=== PATIENT | female | born 1950 | race Caucasian/White ===

== ENCOUNTER → 2018-07-25 | Outpatient (CLI) | payer MEDICARE, BC ==
--- NOTE | 2018-07-28 12:40 | EST ---
EXERCISE STRESS DATE OF SERVICE: 07/25/2018 AGE: 67 SEX: F HT: 5'4" WT: 240 PROTOCOL: Sly STAGE: I DURATION OF EXERCISE: 3:20 HEART RATE REST: 70 BLOOD PRESSURE REST: 142/75 MAXIMUM HEART RATE ACHIEVED: 139 MAXIMUM BLOOD PRESSURE: 209/59 85% MPHR: 130 100% MPHR: 153 METS: 4.6 INDICATIONS: Chest pain. CLINICAL INFORMATION: The patient was exercised for a total period of 3 minutes and 20 seconds. The peak heart rate of 139 was achieved. Maximum blood pressure of 189/49 mmHg is noted. The resting EKG shows normal sinus rhythm with normal NM interval and QRS duration with poor R-wave progression from V1 to V6. No ST-segment depression suggestive of ischemia is noted. FINAL IMPRESSION: This exercise stress test is not suggestive of ischemia. Patient's exercise tolerance is below average. The test was terminated because of the symptoms of shortness of breath. MMODL / IJN: [id number] /
== END | disposition home or self-care (01) ==
LOC: RADNMMAIN 08:46
PROVIDERS: ATTEND Family Medicine
DX: R07.89 Other chest pain (principal)
CPT/HCPCS: 93017

== ENCOUNTER → 2019-07-27 | Outpatient (CLI) | payer MEDICARE, BC ==
--- NOTE | 2019-08-04 11:35 | MM ---
Reason for exam: screening (asymptomatic). Last mammogram was performed 1 year and 6 months ago. History: Patient is postmenopausal. Took hormonal contraceptives for 3 years. Taking estrogen for 20 years. Physical Findings: A clinical breast exam by your physician is recommended on an annual basis and results should be correlated with mammographic findings. MG 3D Screening Mammo W/Cad Bilateral CC and MLO view(s) were taken. Prior study comparison: February 04, 2018, mammogram, performed at [facility]. September 28, 2016, mammogram, performed at [facility]. There are scattered fibroglandular densities. There is no discrete abnormality. No significant changes when compared with prior studies. ASSESSMENT: Negative, BI-RAD 1 RECOMMENDATION: Routine screening mammogram of both breasts in 1 year.
== END | disposition home or self-care (01) ==
LOC: RADMAMWWP 13:59
PROVIDERS: ATTEND Family Medicine
DX: Z12.31 Encounter for screening mammogram for malignant neoplasm of breast (principal)
CPT/HCPCS: 77063; 77067

== ENCOUNTER 2019-07-30 06:58 | Day surgery (SDC) | payer MEDICARE, BC ==
[~2019-07-30 06:58] MED LIST: LACTATED RINGERS 1,000 ML IV SCH; LIDOCAINE 1% 20 ML VIAL (10MG/ML) FOR IV START INTRADERMA PRN
[2019-07-30 07:22] VITALS: TEMP 97.4
[2019-07-30 07:31] LABS: Glucose,Whole Blood 110 mg/dL (75-99)
[2019-07-30] MEDS ORDERED: PROPOFOL 10 MG/ML 20 ML VIAL IV ONE (07:37)
[2019-07-30 08:15] VITALS: RESP 16
--- NOTE | 2019-07-30 08:15 | P.PCN ---
Date of Procedure: 07/30/19 Description of Procedure: BRIEF HISTORY: Patient is a 68-year-old pleasant female scheduled for an elective colonoscopy as a part of screening for malignant neoplasm in the colon. No change in bowel habits, blood per rectum or abdominal pain. No family history of colon cancer. She reports 2 colonoscopies in the past with polypectomy at that time. PROCEDURE PERFORMED: Colonoscopy with polypectomy. PREOPERATIVE DIAGNOSIS: Screening for malignant neoplasm of the colon, patient reports polypectomy on prior colonoscopies. ESTIMATED BLOOD LOSS: Minimal. IV sedation per Anesthesia. PROCEDURE: After informed consent was obtained, the patient, was brought into the endoscopy unit. IV sedation was administered by Anesthesia under continuous monitoring. Digital rectal examination was normal. Initially the Olympus CF-190 flexible video colonoscope was then inserted in the rectum, gradually advanced into the cecum without any difficulty. Careful examination was performed as the scope was gradually being withdrawn. Ileocecal valve and the appendiceal orifice were visualized and appeared normal. Prep was excellent. Mucosa of the cecum, ascending colon, transverse colon, descending colon, sigmoid colon, and rectum appeared normal. Multiple small and large mouth diverticula in the left colon. Diminutive 2 mm transverse colon polyp removed with cold forcep polypectomy. Diminutive 2 mm sigmoid colon polyp removed with cold forcep polypectomy. Retroflexion was performed in the rectum and no lesions were seen. The patient tolerated the procedure well. IMPRESSION: Diminutive polyps removed from the sigmoid and transverse colon with cold forceps. Moderate left colonic diverticulosis. RECOMMENDATIONS: Findings of this examination were discussed with the patient and her . Okay to resume diet. Okay to resume medications. Recommend repeat colonoscopy in 5 years for personal history of colon polyps. Await pathology from polypectomies.
[2019-07-30 08:30] VITALS: BP 124/71; PULSE 78
== END 2019-07-30 09:08 | disposition home or self-care (01) ==
LOC: ORWHC2ENDO 06:58
PROVIDERS: ATTEND Internal Medicine
DX: Z12.11 Encounter for screening for malignant neoplasm of colon (principal); D12.3 Benign neoplasm of transverse colon; K63.5 Polyp of colon; K57.30 Diverticulosis of large intestine without perforation or abscess without bleeding; Z86.010 Personal history of colon polyps; I10 Essential (primary) hypertension; E78.5 Hyperlipidemia, unspecified; R06.00 Dyspnea, unspecified; R60.0 Localized edema; J45.909 Unspecified asthma, uncomplicated; H40.9 Unspecified glaucoma; Z87.891 Personal history of nicotine dependence; Z98.42 Cataract extraction status, left eye; Z98.41 Cataract extraction status, right eye; Z90.710 Acquired absence of both cervix and uterus; Z90.49 Acquired absence of other specified parts of digestive tract; Z79.84 Long term (current) use of oral hypoglycemic drugs; Z79.82 Long term (current) use of aspirin; Z79.890 Hormone replacement therapy; Z79.51 Long term (current) use of inhaled steroids; Z79.899 Other long term (current) drug therapy; Z88.8 Allergy status to other drugs, medicaments and biological substances; Z88.1 Allergy status to other antibiotic agents
CPT/HCPCS: 88305; 45380; J2704

== ENCOUNTER → 2021-08-15 | Outpatient (CLI) | payer MEDICARE, BC ==
--- NOTE | 2021-08-16 10:13 | MM ---
Reason for exam: screening (asymptomatic). Last mammogram was performed 2 years and 1 month ago. History: Patient is postmenopausal. Excisional biopsy of the left breast, 2001. Took hormonal contraceptives for 3 years. Taking estrogen for 20 years. Physical Findings: A clinical breast exam by your physician is recommended on an annual basis and results should be correlated with mammographic findings. MG Screening Mammo w CAD Bilateral CC and MLO view(s) were taken. Prior study comparison: July 27, 2019, bilateral MG 3d screening mammo w/cad. February 04, 2018, mammogram, performed at [facility]. The breast tissue is heterogeneously dense. This may lower the sensitivity of mammography. Stable benign calcifications. There is no discrete abnormality. No significant changes when compared with prior studies. ASSESSMENT: Benign, BI-RAD 2 RECOMMENDATION: Routine screening mammogram of both breasts in 1 year.
== END | disposition home or self-care (01) ==
LOC: RADMAMWWP 13:52
PROVIDERS: ATTEND Family Medicine
DX: Z12.31 Encounter for screening mammogram for malignant neoplasm of breast (principal); Z78.0 Asymptomatic menopausal state
CPT/HCPCS: 77067

== ENCOUNTER → 2022-04-12 | Outpatient (CLI) | payer MEDICARE, BC | END | disposition home or self-care (01) | LOC: LABPAT 14:59 | PROVIDERS: ATTEND Surgery | DX: Z01.812 Encounter for preprocedural laboratory examination (principal) | CPT/HCPCS: 84132; 93005 ==

== ENCOUNTER 2022-04-16 09:13 | Day surgery (SDC) | payer MEDICARE, BC ==
[2022-04-12 10:28] VITALS: BMI 38.7
[~2022-04-16 09:13] MED LIST changes: +DEXAMETHASONE SOD PHOSPHATE 4 MG/ML 1 ML VIAL IV ONE; +HYDROmorphone 0.5 MG/0.5 ML SYRINGE IVP PRN; -LIDOCAINE 1% 20 ML VIAL (10MG/ML) FOR IV START INTRADERMA PRN; +MIDAZOLAM 2 MG/2 ML VIAL IV PRN; +ONDANSETRON 4 MG/2 ML VIAL IVP ONE
[2022-04-16 09:45] LABS: Glucose,Whole Blood 117 mg/dL (70-110)
[2022-04-16 10:12] LABS: Basophils # (A) 0.1 k/uL (0-0.2); Basophils % (A) 1 %; Eosinophils # (A) 0.3 k/uL (0-0.7); Eosinophils % (A) 4 %; HCT 41.2 % (34.0-46.0); HGB 13.9 gm/dL (11.4-16.0); Lymphocytes # (A) 2.1 k/uL (1.0-4.8); Lymphocytes % (A) 28 %; MCH 32.7 pg (25.0-35.0); MCHC 33.8 g/dL (31.0-37.0); MCV 96.9 fL (80.0-100.0); Mean Platelet Volume 7.8; Monocytes # (A) 0.4 k/uL (0-1.0); Monocytes % (A) 5 %; Neutrophils # (A) 4.5 k/uL (1.3-7.7); Neutrophils % (A) 61 %; Platelet Count 301 k/uL (150-450); RBC 4.26 m/uL (3.80-5.40); RDW 12.2 % (11.5-15.5); WBC 7.5 k/uL (3.8-10.6)
[2022-04-16 10:24] LABS: Potassium 3.9 mmol/L (3.5-5.1)
[2022-04-16] MEDS ORDERED: HEPARIN SODIUM,PORCINE/PF 5,000 UNIT/0.5 ML SYRINGE SQ ONE (10:57)
[2022-04-16] MEDS ORDERED: PROPOFOL 10 MG/ML 20 ML VIAL IV ONE (11:08)
[2022-04-16] MEDS ORDERED: ROCURONIUM 10 MG/ML (5 ML VIAL) IV ONE (11:08)
[2022-04-16] MEDS ORDERED: SUCCINYLCHOLINE CHLORIDE 200 MG/10 ML VIAL IV ONE (11:08)
[2022-04-16] MEDS ORDERED: ePHEDrine 50 MG/ML 1 ML VIAL ONE (11:08)
[2022-04-16] MEDS ORDERED: fentaNYL (PF) 50 MCG/ML 2 ML AMP ONE (11:08)
[2022-04-16] MEDS ORDERED: MIDAZOLAM 2 MG/2 ML VIAL ONE (11:08)
[2022-04-16] MEDS ORDERED: LIDOCAINE 2% INJ 20 MG/ML (2 ML VIAL) ONE (11:08)
[2022-04-16] MEDS ORDERED: GLYCOPYRROLATE 0.2 MG/ML 2 ML VIAL ONE (11:08)
[2022-04-16] MEDS ORDERED: NEOSTIGMINE 1 MG/ML 10 ML VIAL ONE (11:08)
--- NOTE | 2022-04-16 11:09 | P.GSHP ---
History of Present Illness H&P Date: 04/16/22 Chief Complaint: Incisional hernia 71-year-old female here today for elective repair of incisional hernia. Patient had previous laparoscopic cholecystectomy with extraction site at the umbilicus. Patient has had gradual swelling they're since that time. Mild pain at times. No nausea or vomiting. Past Medical History Past Medical History: Asthma, Diabetes Mellitus, Hyperlipidemia, Hypertension, Osteoarthritis (OA), Pneumonia Additional Past Medical History / Comment(s): HX COLON POLYPS, HERNIA. History of Any Multi-Drug Resistant Organisms: None Reported Past Surgical History: Breast Surgery, Cholecystectomy, Hysterectomy Additional Past Surgical History / Comment(s): COLONOSCOPIES X 2 POLYPS. , CATARACTS WITH LENS IMPLANTS. LEFT BREAST BX Past Anesthesia/Blood Transfusion Reactions: No Reported Reaction Past Psychological History: No Psychological Hx Reported Smoking Status: Former smoker Past Alcohol Use History: None Reported Additional Past Alcohol Use History / Comment(s): QUIT SMOKING 1999. SMOKED LESS THAN 1 PPD. , STARTED SMOKING TEEN Past Drug Use History: None Reported - Past Family History Father Family Medical History: Cancer Medications and Allergies Home Medications Medication Instructions Recorded Confirmed Type Atorvastatin [Lipitor] 20 mg PO HS 07/27/19 04/16/22 History Bimatoprost [Bimatoprost 0.03% 1 drop BOTH EYES HS 07/27/19 04/16/22 History Ophth Soln] Cholecalciferol (Vitamin D3) 2,000 unit PO DAILY 07/27/19 04/16/22 History [Vitamin D3] Cyanocobalamin (Vitamin B-12) 5,000 mcg PO DAILY 07/27/19 04/16/22 History [Vitamin B-12] Furosemide [Lasix] 20 mg PO QAM 07/27/19 04/16/22 History Mometasone/Formoterol [Dulera 200 2 puff INHALATION BID 07/27/19 04/16/22 History Mcg/5 Mcg Inhaler] estradioL [Estradiol] 0.5 mg PO MOWEFR 07/27/19 04/16/22 History guaiFENesin [Mucinex] 400 mg PO DAILY 07/27/19 04/16/22 History lisinopriL 20 mg PO QAM 07/27/19 04/16/22 History metFORMIN HCL [Glucophage] 500 mg PO BID 07/27/19 04/16/22 History Multivit with Calcium,Iron,Min 1 each PO DAILY 04/12/22 04/16/22 History [Women's Multivitamin] Allergies Allergy/AdvReac Type Severity Reaction Status Date / Time clarithromycin [From Biaxin] Allergy Itching Verified 04/16/22 09:26 theophylline Allergy Itching Verified 04/16/22 09:26 Surgical - Exam Vital Signs Temp Pulse Resp BP Pulse Ox 96.9 F L 67 20 155/69 97 04/16/22 09:39 04/16/22 09:39 04/16/22 09:39 04/16/22 09:39 04/16/22 09:39 Physical exam: General: Well-developed, well-nourished HEENT: Normocephalic, sclerae nonicteric Abdomen: Nontender, nondistended, incarcerated hernia at umbilicus Extremities: No edema Neuro: Alert and oriented Results - Labs 04/16/22 09:47 04/16/22 09:47 Abnormal Lab Results - Last 24 Hours (Table) 04/16/22 Range/Units 09:44 POC Glucose (mg/dL) 117 H (70-110) mg/dL Diabetes panel 04/16/22 Range/Units 09:47 Sodium 140 (137-145) mmol/L Potassium 3.9 (3.5-5.1) mmol/L Chloride 103 (98-107) mmol/L Carbon Dioxide 26 (22-30) mmol/L Pituitary panel 04/16/22 Range/Units 09:47 Sodium 140 (137-145) mmol/L Potassium 3.9 (3.5-5.1) mmol/L Chloride 103 (98-107) mmol/L Carbon Dioxide 26 (22-30) mmol/L Adrenal panel 04/16/22 Range/Units 09:47 Sodium 140 (137-145) mmol/L Potassium 3.9 (3.5-5.1) mmol/L Chloride 103 (98-107) mmol/L Carbon Dioxide 26 (22-30) mmol/L Assessment and Plan (1) Incarcerated incisional hernia Narrative/Plan: 71-year-old female with incarcerated incisional hernia. We'll proceed with open repair with mesh at this time. Risks of bleeding, infection, recurrence, bladder and bowel injury, numbness, nerve injury were discussed with the patient. The patient understands and wishes to proceed. Current Visit: Yes Status: Acute Code(s): K43.0 - INCISIONAL HERNIA WITH OBSTRUCTION, WITHOUT GANGRENE SNOMED Code(s): 266354079
[2022-04-16] MEDS ORDERED: BUPIVACAIN-EPI 0.25%-1:200,000 30 ML VIAL SQ ONE (11:13)
[2022-04-16 12:28] VITALS: TEMP 97.8
[2022-04-16] MEDS ORDERED: traMADol 50 MG TAB PO STA (12:29)
[2022-04-16] MEDS ORDERED: ACETAMINOPHEN TAB 325 MG TAB PO SCH (12:30)
--- NOTE | 2022-04-16 12:33 | P.OP ---
Date of Procedure: 04/16/22 Procedure(s) Performed: PREOPERATIVE DIAGNOSIS: Incarcerated incisional hernia POSTOPERATIVE DIAGNOSIS: Same PROCEDURE: Repair incarcerated incisional hernia with mesh SURGEON: Dr. Jones ANESTHESIA: General OPERATIVE PROCEDURE DETAILS: The patient was placed in the operating table in the supine position. A left sided periumbilical incision was made using the scalpel. The subcutaneous tissues were dissected bluntly and with cautery. The hernia sac was identified. The umbilical attachments to the fascia were divided using electrocautery. The hernia sac was reduced back into the preperitoneal space. There was some scarring and we ran into that reflected the previous extraction site scar tissue. The defect in the fascia measured 2.2 x 1.2 cm. excised. The fascia was circumferentially dissected of overlying fat. No additional defects were seen. The preperitoneal space was then dissected using blunt dissection and electrocautery. The 6.4 cm ventral ex mesh was placed beneath the fascia and sutured in place using trans-fascial 0 Ethibond sutures. The defect was closed using interrupted horizontal 0 Ethibond mattress sutures. The folding edge was sutured down using 0 Ethibond sutures as well. The subcutaneous tissues were reapproximated using inverted 2-0 & 3-0 Vicryl sutures. The umbilicus was tacked back down to the fascia using a 2-0 Vicryl suture. The skin was closed using 4-0 Monocryl sutures. Skin glue and sterile dressings were then applied. HERNIA CHARACTERISTICS: Length: 2.2 Width: 1.2 Type: Incarcerated incisional TYPE OF MESH USED: 6.4 cm round ventral ex LOCATION OF MESH: [place]ublay FIXATION: 0 Ethibond sutures PREOPERATIVE DISCUSSION ON SMOKING CESSASTION: Yes PREOPERATIVE DISCUSSION ON MORBID OBESITY: Yes PREOPERATIVE DISCUSSION ON APPROPRIATE USE OF NARCOTIC USE: Yes PREOPERATIVE EDUCATION: Multi Modal, Smoking Cessation and Weight Loss with BMI over 35. DISPOSITION: Stable to recovery room
[2022-04-16] MEDS ORDERED: traMADol 50 MG TAB PO ONE (13:10)
[2022-04-16 13:11] VITALS: RESP 20
[2022-04-16 13:14] VITALS: BP 143/83; PULSE 52
[2022-04-16] MEDS ORDERED: IBUPROFEN 600 MG TAB PO SCH (15:30)
== END 2022-04-16 14:03 ==
LOC: OR 09:13
PROVIDERS: ATTEND Surgery
DX: K43.0 Incisional hernia with obstruction, without gangrene (principal); M19.90 Unspecified osteoarthritis, unspecified site; E78.5 Hyperlipidemia, unspecified; I10 Essential (primary) hypertension; E11.9 Type 2 diabetes mellitus without complications; J45.909 Unspecified asthma, uncomplicated; J18.9 Pneumonia, unspecified organism; Z87.891 Personal history of nicotine dependence; Z79.890 Hormone replacement therapy; Z79.899 Other long term (current) drug therapy; Z79.84 Long term (current) use of oral hypoglycemic drugs; Z88.1 Allergy status to other antibiotic agents; Z88.8 Allergy status to other drugs, medicaments and biological substances; Z86.010 Personal history of colon polyps; Z79.51 Long term (current) use of inhaled steroids
CPT/HCPCS: 49561; 49568; 80051; 85025; C1781; J2250; J0330; J1100; J2710; J0690; J2405; J3010; J2704; J2001

== ENCOUNTER → 2022-10-17 | Outpatient (CLI) | payer MEDICARE ==
--- NOTE | 2022-10-18 10:17 | MM ---
Reason for Exam: Screening (asymptomatic). Last mammogram was performed 1 year(s) and 2 month(s) ago. Patient History: Menarche at age 13. First Full-Term at age 26. Left ovary removed at age 48. Hysterectomy at age 48. Postmenopausal. Currently using Estrogen, for 20 years. Patient used Hormonal Contraceptives for 3 years. 2001, Excisional Biopsy on the Left side. Risk Values: Latricia 5 year model risk: 2.3%. Prior Study Comparison: 02/04/2018 Screening Mammogram, [facility]. 07/27/2019 Bilateral Screening Mammogram, [facility]. 08/15/2021 Bilateral Screening Mammogram, [facility]. Tissue Density: There are scattered fibroglandular densities. Findings: Analyzed By CAD. Pattern appears symmetrical and stable. Benign calcifications within the left breast. No suspicious groups of microcalcifications, spiculated or lobular masses, architectural distortion or other secondary signs of malignancy are mammographically apparent. Overall Assessment: Benign, BI-RAD 2 Management: Screening Mammogram of both breasts in 1 year. A negative mammogram report should not preclude additional follow up of suspicious palpable abnormalities. Patient should continue monthly self breast exam. A clinical breast exam by your physician is recommended on an annual basis and results should be correlated with mammographic findings. Electronically signed and approved by: Rob Roche D.O. Radiologis
== END | disposition home or self-care (01) ==
LOC: RADMAMWWP 13:31
PROVIDERS: ATTEND Family Medicine
DX: Z12.31 Encounter for screening mammogram for malignant neoplasm of breast (principal); Z78.0 Asymptomatic menopausal state
CPT/HCPCS: 77063; 77067

== ENCOUNTER 2023-09-13 10:55 | Observation (INO) | payer MEDICARE ==
--- NOTE | 2023-09-13 11:45 | ED ---
General Adult HPI - General Chief complaint: Chest Pain Stated complaint: CHEST PAINS Time Seen by Provider: 09/13/23 11:21 Source: patient, RN notes reviewed, old records reviewed Mode of arrival: ambulatory Limitations: no limitations - History of Present Illness Initial comments: 72-year-old female presenting with intermittent chest pain over the past several weeks. Patient does not have prior history of CAD. She reports this as an aching sensation in her left chest. No associated vomiting or diaphoresis. No lower extremity pain or swelling. - Related Data Home Medications Medication Instructions Recorded Confirmed Atorvastatin [Lipitor] 20 mg PO HS 07/27/19 09/13/23 Cyanocobalamin (Vitamin B-12) 5,000 mcg PO DAILY 07/27/19 09/13/23 [Vitamin B-12] Furosemide [Lasix] 20 mg PO DAILY 07/27/19 09/13/23 Mometasone/Formoterol [Dulera 200 2 puff INHALATION RT-BID 07/27/19 09/13/23 Mcg/5 Mcg Inhaler] estradioL [Estradiol] 0.5 mg PO MOWEFR 07/27/19 09/13/23 lisinopriL 20 mg PO DAILY 07/27/19 09/13/23 metFORMIN HCL [Glucophage] 500 mg PO BID 07/27/19 09/13/23 Albuterol Inhaler [Ventolin Hfa 1 - 2 puff INHALATION RT-Q6H PRN 09/13/23 09/13/23 Inhaler] Aspirin EC [Ecotrin Low Dose] 81 mg PO DAILY 09/13/23 09/13/23 Bimatoprost [Lumigan 0.01% Ophth 1 drop BOTH EYES HS 09/13/23 09/13/23 Soln] Cholecalciferol (Vitamin D3) 50 mcg PO DAILY 09/13/23 09/13/23 [Vitamin D3 (50 Mcg = 2000 Iu)] Tirzepatide [Mounjaro] 5 mg SQ DIRECTED 09/13/23 09/13/23 guaiFENesin 400 mg PO DAILY 09/13/23 09/13/23 Allergies Allergy/AdvReac Type Severity Reaction Status Date / Time clarithromycin [From Biaxin] Allergy Itching Verified 09/13/23 11:54 theophylline Allergy Itching Verified 09/13/23 11:54 Review of Systems ROS Statement: Those systems with pertinent positive or pertinent negative responses have been documented in the HPI. ROS Other: All systems not noted in ROS Statement are negative. Past Medical History Past Medical History: Asthma, Diabetes Mellitus, Hyperlipidemia, Hypertension, Osteoarthritis (OA), Pneumonia Additional Past Medical History / Comment(s): HX COLON POLYPS, HERNIA. History of Any Multi-Drug Resistant Organisms: None Reported Past Surgical History: Breast Surgery, Cholecystectomy, Hysterectomy Additional Past Surgical History / Comment(s): COLONOSCOPIES X 2 POLYPS. , CATARACTS WITH LENS IMPLANTS. LEFT BREAST BX Past Anesthesia/Blood Transfusion Reactions: No Reported Reaction Past Psychological History: No Psychological Hx Reported Smoking Status: Former smoker Past Alcohol Use History: None Reported Past Drug Use History: None Reported - Past Family History Father Family Medical History: Cancer General Exam Limitations: no limitations General appearance: alert, in no apparent distress Head exam: Present: atraumatic, normocephalic Eye exam: Present: normal appearance, PERRL ENT exam: Present: normal exam Neck exam: Present: normal inspection. Absent: tenderness, meningismus Respiratory exam: Present: normal lung sounds bilaterally. Absent: respiratory distress, wheezes Cardiovascular Exam: Present: regular rate, normal rhythm GI/Abdominal exam: Present: soft. Absent: distended, tenderness, guarding Extremities exam: Present: normal inspection, normal capillary refill. Absent: calf tenderness Neurological exam: Present: alert, oriented X3 Psychiatric exam: Present: normal affect, normal mood Skin exam: Present: warm, dry, intact. Absent: cyanosis, diaphoretic Course Vital Signs 09/13/23 09/13/23 11:04 11:37 Temperature 97.9 F Pulse Rate 90 77 Respiratory 18 16 Rate Blood Pressure 122/88 157/100 O2 Sat by Pulse 98 96 Oximetry Medical Decision Making - Medical Decision Making Was pt. sent in by a medical professional or institution (, PA, LACE BURN OUT TENDER, urgent care, hospital, or half-way...) When possible be specific @ -No Did you speak to anyone other than the patient for history (EMS, parent, family, police, friend...)? What history was obtained from this source @ -No Did you review nursing and triage notes (agree or disagree)? Why? @ -I reviewed and agree with nursing and triage notes Were old charts reviewed (outside hosp., previous admission, EMS record, old EKG, old radiological studies, urgent care reports/EKG's, half-way records)? Report findings @ -No old charts were reviewed Differential Diagnosis (chest pain, altered mental status, abdominal pain women, abdominal pain men, vaginal bleeding, weakness, fever, dyspnea, syncope, headache, dizziness, GI bleed, back pain, seizure, CVA, palpatations, mental health, musculoskeletal)? @ -Differential Chest Pain: Stable Angina, Unstable Angina, STEMI, NSTEMI Aortic Dissection, Pneumothorax, Musculoskeletal, Esophageal Spasm GERD, Cholecystitis, Pancreatitis, Zoster, this is not meant to be an all-inclusive list. EKG interpreted by me (3pts min.). @ -Sinus rhythm rate of 70, RI interval 182, QRS duration 125, QTc [address] segment elevation. X-rays interpreted by me (1pt min.). @ Chest x-ray negative for acute cardiopulmonary findings U/S interpreted by me (1pt. min.). @ -None done What testing was considered but not performed or refused? (CT, X-rays, U/S, labs)? Why? @ -None What meds were considered but not given or refused? Why? @ -None Did you discuss the management of the patient with other professionals (professionals i.e. , PA, LACE BURN OUT TENDER, lab, RT, psych nurse, socially responsible investment adviser, senior lead java developer, teacher, mounted police officer, bilingual case manager)? Give summary @ -[EMH, will accept admission for cardiac rule out Was smoking cessation discussed for >3mins.? @ -No Was critical care preformed (if so, how long)? @ -No Were there social determinants of health that impacted care today? How? (Homelessness, low income, unemployed, alcoholism, drug addiction, transportation, low edu. Level, literacy, decrease access to med. care, nursing home, rehab)? @ -No Was there de-escalation of care discussed even if they declined (Discuss DNR or withdrawal of care, Hospice)? DNR status @ -No What co-morbidities impacted this encounter? (DM, HTN, Smoking, COPD, CAD, Cancer, CVA, ARF, Chemo, Hep., AIDS, mental health diagnosis, sleep apnea, morbid obesity)? @ -[Hypertension, diabetes Was patient admitted / discharged? Hospital course, mention meds given and route, prescriptions, significant lab abnormalities, going to OR and other pertinent info. @ -72-year-old female presenting for evaluation of intermittent chest pain over the past 2 weeks. Patient's EKG is sinus without ST segment elevation. Chest x-ray is clear. She has normal CBC, normal CMP, negative initial troponin. She will be observed for serial cardiac testing, telemetry, cardiology consultation. Undiagnosed new problem with uncertain prognosis? @ -No Drug Therapy requiring intensive monitoring for toxicity (Heparin, Nitro, Insulin, Cardizem)? @ -No Were any procedures done? @ -No Diagnosis/symptom? @ -[Chest pain Acute, or Chronic, or Acute on Chronic? @ -Acute Uncomplicated (without systemic symptoms) or Complicated (systemic symptoms)? @ -[default Side effects of treatment? @ -No Exacerbation, Progression, or Severe Exacerbation? @ -No Poses a threat to life or bodily function? How? (Chest pain, [place], [place], pneumonia, PE, COPD, DKA, ARF, appy, cholecystitis, CVA, Diverticulitis, Homicidal, Suicidal, threat to staff... and all critical care pts) @ -[Yes, chest pain - Lab Data Result diagrams: 09/13/23 11:40 09/13/23 11:40 Lab Results 09/13/23 09/13/23 09/13/23 Range/Units 11:40 11:40 11:40 WBC 9.0 (3.8-10.6) k/uL RBC 4.70 (3.80-5.40) m/uL Hgb 15.3 (11.4-16.0) gm/dL Hct 44.5 (34.0-46.0) % MCV 94.6 (80.0-100.0) fL MCH 32.7 (25.0-35.0) pg MCHC 34.5 (31.0-37.0) g/dL RDW 12.7 (11.5-15.5) % Plt Count 339 (150-450) k/uL MPV 8.2 Neutrophils % 65 % Lymphocytes % 24 % Monocytes % 6 % Eosinophils % 2 % Basophils % 1 % Neutrophils # 5.9 (1.3-7.7) k/uL Lymphocytes # 2.2 (1.0-4.8) k/uL Monocytes # 0.5 (0-1.0) k/uL Eosinophils # 0.2 (0-0.7) k/uL Basophils # 0.1 (0-0.2) k/uL PT 10.4 (10.0-12.5) sec INR 0.9 (<1.2) APTT 24.2 (22.0-30.0) sec Sodium 139 (137-145) mmol/L Potassium 4.0 (3.5-5.1) mmol/L Chloride 105 (98-107) mmol/L Carbon Dioxide 21 L (22-30) mmol/L Anion Gap 13 mmol/L BUN 20 H (7-17) mg/dL Creatinine 0.77 (0.52-1.04) mg/dL Est GFR (CKD-EPI)AfAm 89 (>60 ml/min/1.73 sqM) Est GFR (CKD-EPI)NonAf 77 (>60 ml/min/1.73 sqM) Glucose 133 H (74-99) mg/dL Calcium 10.3 H (8.4-10.2) mg/dL Magnesium 1.9 (1.6-2.3) mg/dL Total Bilirubin 1.4 H (0.2-1.3) mg/dL AST 29 (14-36) U/L ALT 41 H (4-34) U/L Alkaline Phosphatase 76 (38-126) U/L Troponin I (0.000-0.034) ng/mL Total Protein 7.4 (6.3-8.2) g/dL Albumin 4.6 (3.5-5.0) g/dL 09/13/23 Range/Units 11:40 WBC (3.8-10.6) k/uL RBC (3.80-5.40) m/uL Hgb (11.4-16.0) gm/dL Hct (34.0-46.0) % MCV (80.0-100.0) fL MCH (25.0-35.0) pg MCHC (31.0-37.0) g/dL RDW (11.5-15.5) % Plt Count (150-450) k/uL MPV Neutrophils % % Lymphocytes % % Monocytes % % Eosinophils % % Basophils % % Neutrophils # (1.3-7.7) k/uL Lymphocytes # (1.0-4.8) k/uL Monocytes # (0-1.0) k/uL Eosinophils # (0-0.7) k/uL Basophils # (0-0.2) k/uL PT (10.0-12.5) sec INR (<1.2) APTT (22.0-30.0) sec Sodium (137-145) mmol/L Potassium (3.5-5.1) mmol/L Chloride (98-107) mmol/L Carbon Dioxide (22-30) mmol/L Anion Gap mmol/L BUN (7-17) mg/dL Creatinine (0.52-1.04) mg/dL Est GFR (CKD-EPI)AfAm (>60 ml/min/1.73 sqM) Est GFR (CKD-EPI)NonAf (>60 ml/min/1.73 sqM) Glucose (74-99) mg/dL Calcium (8.4-10.2) mg/dL Magnesium (1.6-2.3) mg/dL Total Bilirubin (0.2-1.3) mg/dL AST (14-36) U/L ALT (4-34) U/L Alkaline Phosphatase (38-126) U/L Troponin I <0.012 (0.000-0.034) ng/mL Total Protein (6.3-8.2) g/dL Albumin (3.5-5.0) g/dL Disposition Clinical Impression: Chest pain Disposition: ADMITTED IP TO THIS HOSP Condition: Stable Is patient prescribed a controlled substance at d/c from ED?: No Referrals: Mirlande Eduardo [Primary Care Provider] - 1-2 days Time of Disposition: 12:41
[2023-09-13 12:03] LABS: Basophils # (A) 0.1 k/uL (0-0.2); Basophils % (A) 1 %; Eosinophils # (A) 0.2 k/uL (0-0.7); Eosinophils % (A) 2 %; HCT 44.5 % (34.0-46.0); HGB 15.3 gm/dL (11.4-16.0); Lymphocytes # (A) 2.2 k/uL (1.0-4.8); Lymphocytes % (A) 24 %; MCH 32.7 pg (25.0-35.0); MCHC 34.5 g/dL (31.0-37.0); MCV 94.6 fL (80.0-100.0); Mean Platelet Volume 8.2; Monocytes # (A) 0.5 k/uL (0-1.0); Monocytes % (A) 6 %; Neutrophils # (A) 5.9 k/uL (1.3-7.7); Neutrophils % (A) 65 %; Platelet Count 339 k/uL (150-450); RDW 12.7 % (11.5-15.5)
[2023-09-13 12:17] LABS: ALT 41 U/L (4-34); AST 29 U/L (14-36); African American GFR (CKD) 89 (>60 ml/min/1.73 sqM); Albumin 4.6 g/dL (3.5-5.0); Alkaline Phosphatase 76 U/L (38-126); Anion Gap 13 mmol/L; Blood Urea Nitrogen 20 mg/dL (7-17); Calcium 10.3 mg/dL (8.4-10.2); Carbon Dioxide 21 mmol/L (22-30); Chloride 105 mmol/L (98-107); Glucose 133 mg/dL (74-99); Magnesium 1.9 mg/dL (1.6-2.3); Non-African American GFR(CKD) 77 (>60 ml/min/1.73 sqM); Sodium 139 mmol/L (137-145); Total Bilirubin 1.4 mg/dL (0.2-1.3); Total Protein 7.4 g/dL (6.3-8.2)
--- NOTE | 2023-09-13 12:23 | XR ---
EXAMINATION TYPE: XR chest 2V DATE OF EXAM: 09/13/2023 COMPARISON: NONE TECHNIQUE: PA and lateral views submitted. HISTORY: Chest pain FINDINGS: The lungs are clear and there is no pneumothorax, pleural effusion, or focal pneumonia. Heart is pro minent in size but no overt failure. Osseous structures demonstrate hypertrophic and degenerative lila nges of the spine. Pleural-based thickening bilaterally. Surgical clips gallbladder fossa. IMPRESSION: 1. No acute process.
[2023-09-13 12:28] LABS: INR 0.9 (<1.2); Partial Thromboplastin Time 24.2 sec (22.0-30.0); Prothrombin Time 10.4 sec (10.0-12.5)
[2023-09-13] MEDS ORDERED: ACETAMINOPHEN TAB 325 MG TAB PO PRN (12:38)
[2023-09-13] MEDS ORDERED: NALOXONE 0.4 MG/ML 1 ML VIAL IV PRN (12:38)
[2023-09-13] MEDS: ASPIRIN 325 MG TAB PO STA (12:58)
[2023-09-13] MEDS ORDERED: DEXTROSE 50% SYRINGE 50 ML IVP PRN ×2 (14:09)
[2023-09-13 17:18] LABS: Glucose,Whole Blood 166 mg/dL (70-110)
[2023-09-13] MEDS: HEPARIN SODIUM,PORCINE 5,000 UNIT/ML 1 ML VIAL SQ SCH (17:44)
[2023-09-13] MEDS: INSULIN ASPART (NovoLOG) 100 UNIT/ML VIAL SQ SCH (17:44)
[2023-09-13] MEDS: SYMBICORT 160-4.5 MCG INHALER INHALATION SCH (19:37)
[2023-09-13 20:24] LABS: Glucose,Whole Blood 100 mg/dL (70-110)
[2023-09-13] MEDS: ATORVASTATIN 20 MG TAB PO SCH (20:55)
[2023-09-13] MEDS: LATANOPROST 0.005% OPHTH DROPS 2.5 ML BTL BOTH EYES SCH (21:26)
[2023-09-13] MEDS ORDERED: IPRATROPIUM-ALBUTEROL 3 ML NEB INHALATION PRN (21:28)
--- NOTE | 2023-09-13 22:15 | P.HPIM ---
History of Present Illness H&P Date: 09/13/23 Chief Complaint: Chest pain Patient is a 72-year-old female with known history of hypertension, hyperlipidemia, diabetes type 2 [id number], asthma and prior history of smoking presents to ER with complaints of chest pain on and off for the past 2 weeks. Patient started having chest pain this morning again. Pain is mainly left retrosternal, sharp in nature. No associated nausea or vomiting or diaphoresis. Patient states that she she felt left arm tingling sensation. Patient states that she has neuropathy and also complaining of left facial numbness like sensation as well. Denies any focal weakness. No headache or dizziness or lightheadedness. Denies any leg swelling. No cough or sputum production. Patient has upper respiratory symptoms about 2 months ago. Chest x-ray showed no acute process. EKG showed sinus rhythm with heart rate 70 and left axis deviation. Laboratory pressure WBC 7.0 hemoglobin 15.3 and platelets 339 Sodium 139 potassium 4.0 chloride 105 bicarb is 21 BUN 20 and creatinine 0.77 blood sugar 133 and calcium 10.3 total bili 1.4 AST 29 and ALT 41 alk phos 76. Troponin x 3 negative. Review of Systems Constitutional: Patient denies any fever or chills . No generalized weakness or weight loss. Abdomen: Patient denied nausea vomiting and diarrhea and abdominal pain. Cardiovascular: Patient denies any chest pain or short of breath no palpitations. Respiratory: patient denied any cough is from production. No shortness of breath Neurologic: Patient complains of left upper extremity tingling sensation and facial numbness. No headache. Musculoskeletal: Patient denies any complaints of joint swelling or deformity. Skin: Negative Psychiatric: Negative Endocrine: No heat or cold intolerance. No recent weight gain. Genitourinary: No dysuria or hematuria. All other 14 point ROS negative except the above Past Medical History Past Medical History: Asthma, Diabetes Mellitus, Hyperlipidemia, Hypertension, Osteoarthritis (OA), Pneumonia Additional Past Medical History / Comment(s): HX COLON POLYPS, HERNIA. History of Any Multi-Drug Resistant Organisms: None Reported Past Surgical History: Breast Surgery, Cholecystectomy, Hysterectomy Additional Past Surgical History / Comment(s): COLONOSCOPIES X 2 POLYPS. , CATARACTS WITH LENS IMPLANTS. LEFT BREAST BX Past Anesthesia/Blood Transfusion Reactions: No Reported Reaction Past Psychological History: No Psychological Hx Reported Smoking Status: Former smoker Past Alcohol Use History: None Reported Past Drug Use History: None Reported - Past Family History Father Family Medical History: Cancer Medications and Allergies Home Medications Medication Instructions Recorded Confirmed Type Atorvastatin [Lipitor] 20 mg PO HS 07/27/19 09/13/23 History Cyanocobalamin (Vitamin B-12) 5,000 mcg PO DAILY 07/27/19 09/13/23 History [Vitamin B-12] Furosemide [Lasix] 20 mg PO DAILY 07/27/19 09/13/23 History Mometasone/Formoterol [Dulera 200 2 puff INHALATION RT-BID 07/27/19 09/13/23 History Mcg/5 Mcg Inhaler] estradioL [Estradiol] 0.5 mg PO MOWEFR 07/27/19 09/13/23 History lisinopriL 20 mg PO DAILY 07/27/19 09/13/23 History metFORMIN HCL [Glucophage] 500 mg PO BID 07/27/19 09/13/23 History Albuterol Inhaler [Ventolin Hfa 1 - 2 puff INHALATION RT-Q6H PRN 09/13/23 09/13/23 History Inhaler] Aspirin EC [Ecotrin Low Dose] 81 mg PO DAILY 09/13/23 09/13/23 History Bimatoprost [Lumigan 0.01% Ophth 1 drop BOTH EYES HS 09/13/23 09/13/23 History Soln] Cholecalciferol (Vitamin D3) 50 mcg PO DAILY 09/13/23 09/13/23 History [Vitamin D3 (50 Mcg = 2000 Iu)] Tirzepatide [Mounjaro] 5 mg SQ DIRECTED 09/13/23 09/13/23 History guaiFENesin 400 mg PO DAILY 09/13/23 09/13/23 History Allergies Allergy/AdvReac Type Severity Reaction Status Date / Time clarithromycin [From Biaxin] Allergy Itching Verified 09/13/23 11:54 theophylline Allergy Itching Verified 09/13/23 11:54 Physical Exam Vitals: Vital Signs Temp Pulse Resp BP Pulse Ox 09/13/23 11:37 77 16 157/100 96 09/13/23 11:04 97.9 F 90 18 122/88 98 Intake and Output 09/12/23 09/13/23 09/13/23 22:59 06:59 14:59 Other: Weight 97.522 kg PHYSICAL EXAMINATION: Patient is lying in the bed comfortably, no acute distress, awake alert and oriented.. HEENT: Normocephalic. Neck is supple. Pupils reactive. Nostrils clear. Oral c avity is moist. Neck reveals no JVD, carotid bruits, or thyromegaly. CHEST EXAMINATION: Trachea is central. Symmetrical expansion. Prolonged expiration. Lung keenan clear to auscultation and percussion. Nonlabored breathing. CARDIAC: Normal S1, S2 with no gallops. No murmurs ABDOMEN: Soft. Bowel sounds normal. No organomegaly. No abdominal bruits. Extremities: reveal no edema. No clubbing or cyanosis Neurologically awake, alert, oriented x3 with well-coordinated movements. No focal deficits noted Skin: No rash or skin lesions. Psychiatric: Coperative. Nonsuicidal Musculoskeletal: No joint swelling or deformity. Normal range of motion. Results CBC & Chem 7: 09/13/23 11:40 09/13/23 11:40 Labs: Abnormal Lab Results - Last 24 Hours (Table) 09/13/23 Range/Units 11:40 Carbon Dioxide 21 L (22-30) mmol/L BUN 20 H (7-17) mg/dL Glucose 133 H (74-99) mg/dL Calcium 10.3 H (8.4-10.2) mg/dL Total Bilirubin 1.4 H (0.2-1.3) mg/dL ALT 41 H (4-34) U/L Thrombosis Risk Factor Assmnt - DVT/VTE Prophylaxis DVT/VTE Prophylaxis: Pharmacologic Prophylaxis ordered Assessment and Plan Assessment: Atypical chest pain. Rule out ACS. Hypercalcemia 10.3 likely from dehydration Mild transaminitis Hypertension Diabetes type 2 [id number] Diabetic peripheral neuropathy Asthma Hyperlipidemia Obesity with BMI 35.8 Prior history of smoking DVT prophylaxis with heparin subcu Plan: Patient will be continued on daily monitoring. Serial EKG and troponin x 3 negative. Patient will be given gentle IV hydration. Follow-up repeat CMP. Continue with insulin sliding scale Continue DuoNebs and follow-up closely. Cardiology was consulted for further evaluation. Time with Patient: Greater than 30
[2023-09-13] MEDS: SODIUM CHLORIDE 0.9% 1,000 ML IV SCH (22:36)
[2023-09-14 06:07] LABS: Glucose,Whole Blood 108 mg/dL (70-110)
[2023-09-14] MEDS: ASPIRIN 81 MG PO SCH (08:48)
[2023-09-14] MEDS: lisinopriL 20 MG TAB PO SCH (08:48)
--- NOTE | 2023-09-14 10:09 | XR ---
EXAMINATION TYPE: XR cervical spine comp DATE OF EXAM: 09/14/2023 8:43 AM CLINICAL INDICATION:Female, 72 years old with history of Left hand tingling sensation; PHH COMPARISON: None TECHNIQUE: The cervical spine was imaged in frontal, lateral, odontoid and bilateral oblique. 5 views total. FINDINGS: The osseous structures show normal alignment without evidence of an acute fracture or vertebral body height loss. Mild/moderate multilevel degenerative disc disease and facet arthrosis. Predominately an terior marginal osteophytes greatest at C3-C4, and small to moderate posterior disc osteophyte comple xes C5-C6 and C6-7. Mild facet disease throughout. Pedicles appear intact. Dens and lateral masses ap pear intact and normally aligned. No discrete acute soft tissue abnormality. Calcifications in the bi lateral neck likely related to the carotid arteries. If clinical concern persists, CT or MRI may be obtained as indicated for further evaluation. IMPRESSION: 1. No radiographic evidence of an acute osseous abnormality of the cervical spine. 2. Multilevel mild/moderate spondylosis, with suspected mild to moderate canal and neural foraminal stenoses particularly at C5-C6 and C6-C7.
[2023-09-14 10:27] LABS: ALT 38 U/L (8-44); AST 23 U/L (13-35); Albumin 4.3 g/dL (3.8-4.9); Albumin/Globulin Ratio 1.65 Ratio (1.60-3.17); Alkaline Phosphatase 65 U/L (41-126); BUN/Creat Ratio 23.88 Ratio (12.00-20.00); Blood Urea Nitrogen 19.1 mg/dL (9.0-27.0); Calcium 9.9 mg/dL (8.7-10.3); Carbon Dioxide 24.3 mmol/L (21.6-31.8); Chloride 106 mmol/L (96-109); Globulin 2.6 g/dL (1.6-3.3); Glucose 102 mg/dL (70-110); Potassium 4.8 mmol/L (3.5-5.5); Sodium 143 mmol/L (135-145); Total Protein 6.9 g/dL (6.2-8.2)
[2023-09-14 12:08] LABS: Glucose,Whole Blood 88 mg/dL (70-110)
--- NOTE | 2023-09-14 13:52 | P.PN ---
Subjective Progress Note Date: 09/14/23 zachary is a 72-year-old female with known history of hypertension, hyperlipidemia, diabetes type 2 ihy-zukyyxa-hslyglpat, asthma and prior history of smoking presents to ER with complaints of chest pain on and off for the past 2 weeks. Patient started having chest pain this morning again. Pain is mainly left retrosternal, sharp in nature. No associated nausea or vomiting or diaphoresis. Patient states that she she felt left arm tingling sensation. Patient states that she has neuropathy and also complaining of left facial numbness like sensation as well. Denies any focal weakness. No headache or dizziness or lightheadedness. Denies any leg swelling. No cough or sputum production. Patient has upper respiratory symptoms about 2 months ago. Chest x-ray showed no acute process. EKG showed sinus rhythm with heart rate 70 and left axis deviation. Laboratory pressure WBC 7.0 hemoglobin 15.3 and platelets 339 Sodium 139 potassium 4.0 chloride 105 bicarb is 21 BUN 20 and creatinine 0.77 blood sugar 133 and calcium 10.3 total bili 1.4 AST 29 and ALT 41 alk phos 76. Troponin x 3 negative. 09/14. Patient seen and examined. No further episodes of chest pain. Cardiology eval the patient, recommended doing stress echo REVIEW OF SYSTEMS: CONSTITUTIONAL: No fever, no malaise,. CARDIOVASCULAR: No chest pain, no palpitations, no syncope. PULMONARY: No shortness of breath, no cough, GASTROINTESTINAL: No diarrhea, no nausea, no vomiting, no abdominal pain. NEUROLOGICAL: No headaches, no weakness, PHYSICAL EXAMINATION: GENERAL: The patient is alert and oriented x3, not in any acute distress. Well developed, well nourished. HEENT: Pupils are round and equally reacting to light. EOMI. No scleral icterus. No conjunctival pallor. Normocephalic, atraumatic. No pharyngeal erythema. No thyromegaly. CARDIOVASCULAR: S1 and S2 present. No murmurs, rubs, or gallops. PULMONARY: Chest is clear to auscultation, no wheezing or crackles. ABDOMEN: Soft, nontender, nondistended, normoactive bowel sounds. No palpable organomegaly. MUSCULOSKELETAL: No joint swelling or deformity. EXTREMITIES: No cyanosis, clubbing, or pedal edema. NEUROLOGICAL: Gross neurological examination did not reveal any focal deficits. SKIN: No rashes. Assessment and plan Atypical chest pain. Rule out ACS. Hypercalcemia 10.3 likely from dehydration Mild transaminitis Hypertension Diabetes type 2 [id number] Diabetic peripheral neuropathy Asthma Hyperlipidemia Obesity with BMI 35.8 Prior history of smoking DVT prophylaxis with heparin subcu Plan: Monitor vital signs monitor CBC Monitor CMP Serial EKG and troponin x 3 negative. Continue with insulin sliding scale Continue DuoNebs and follow-up closely. Cardiology consulted, ordered stress test Labs and medication were reviewed.. Continue same treatment. Continue with symptomatic treatment. Resume home medication. Monitor labs and vitals. DVT and GI prophylaxis. Further recommendations as per clinical course of the venkat ent Dictation was produced using [employer] dictation software. please excuse any grammatical, word or spelling errors. Objective - Vital Signs Vital signs: Vital Signs Temp 98.0 F 09/14/23 07:00 Pulse 60 09/14/23 07:00 Resp 16 09/14/23 07:00 BP 141/72 09/14/23 07:00 Pulse Ox 99 09/14/23 09:27 FiO2 Intake & Output 09/13/23 09/14/23 09/14/23 18:59 06:59 18:59 Intake Total 298 Balance 298 Weight 97.522 kg Intake: Oral 298 Other: Voiding Method Toilet # Voids 1 - Labs CBC & Chem 7: 09/13/23 11:40 09/14/23 05:27 Labs: Abnormal Lab Results - Last 24 Hours (Table) 09/13/23 09/13/23 Range/Units 11:40 17:17 Carbon Dioxide 21 L (22-30) mmol/L BUN 20 H (7-17) mg/dL Glucose 133 H (74-99) mg/dL POC Glucose (mg/dL) 166 H (70-110) mg/dL Calcium 10.3 H (8.4-10.2) mg/dL Total Bilirubin 1.4 H (0.2-1.3) mg/dL ALT 41 H (4-34) U/L
[2023-09-14 14:34] LABS: Chol/HDL Ratio 2.83 Ratio; LDL Cholesterol,Calculated 52.4 mg/dL (0.0-131.0)
--- NOTE | 2023-09-14 15:03 | P.CRDCN ---
History of Present Illness Consult date: 09/14/23 Reason for Consult (text): Chest discomfort History of present illness: The patient is a 72-year-old female who presented to the hospital with chest discomfort. The patient has a known history of hypertension, dyslipidemia, and diabetes mellitus. The patient states that she was recently evaluated by her primary care provider who found an abnormal EKG and therefore was in the process of referring [facility] to [facility]. In the meantime she had reported several episodes of chest discomfort which had awoken her in the middle the nig ht. This was a sharp discomfort which radiated into her left arm. She also reports having intermittent episodes of palpitations, which she can associate hypertension. She states she has had some home readings as high as 170 systolic. DIAGNOSTICS: EKG shows sinus mechanism with left axis deviation Chest x-ray shows no acute cardiopulmonary process Cervical spine x-ray shows no acute osseous abnormality. Multilevel mild to moderate spondylosis with suspected mild to moderate canal and neural foraminal stenosis Lab data: WBC 9.0, hemoglobin 15.3, hematocrit 44.5, platelet 339, sodium 143, potassium 4.8, BUN 19, creatinine 0.8, hemoglobin A1c 6.4, magnesium 1.9, AST 23, ALT 38, triglycerides 139, LDL 52, HDL 43, TSH 3.5 REVIEW OF SYSTEMS: No fever or chills. No cough or expectoration. No diaphoresis. Patient denies headache, dizziness, blurred vision, double vision. Patient denies any stomach discomfort. No nausea, vomiting. No hematochezia. No hematemesis. Denies any black stools or blood in his stools. Denies dysuria or hematuria. No muscle weakness or numbness. Positive for palpitations. Positive for intermittent chest pains PHYSICAL EXAMINATION: This is a 72-year-old female in no apparent distress at the time of my examination. HEENT: Head is atraumatic, normocephalic. Pupils are equal, round. There is no jugular venous distention. No carotid bruit is heard. CHEST EXAMINATION: Lungs are clear to auscultation. No chest wall tenderness is noted on palpation or with deep breathing. HEART EXAMINATION: Heart regular rate and rhythm. S1, S2 heard. No murmurs, gallops or rub. ABDOMEN: Soft, nontender. Bowel sounds are heard. No organomegaly noted. EXTREMITIES: 2+ peripheral pulses with no evidence of peripheral edema and no calf tenderness noted. NEUROLOGIC EXAMINATION: Patient is awake, alert and oriented x3. FINAL ASSESSMENT AND PLAN: Chest discomfort Diabetes mellitus Hypertension, uncontrolled Dyslipidemia PLAN: Increase lisinopril to 30 mg daily Proceed with exercise stress echocardiogram Further recommendations be based upon clinical course I am dictating on behalf of Dr Harman Pisano's history/physical and assessment/plan. Past Medical History Past Medical History: Asthma, Diabetes Mellitus, Hyperlipidemia, Hypertension, Osteoarthritis (OA), Pneumonia Additional Past Medical History / Comment(s): HX COLON POLYPS, HERNIA. History of Any Multi-Drug Resistant Organisms: None Reported Past Surgical History: Breast Surgery, Cholecystectomy, Hysterectomy Additional Past Surgical History / Comment(s): COLONOSCOPIES X 2 POLYPS. , CATARACTS WITH LENS IMPLANTS. LEFT BREAST BX Past Anesthesia/Blood Transfusion Reactions: No Reported Reaction Past Psychological History: No Psychological Hx Reported Smoking Status: Former smoker Past Alcohol Use History: None Reported Past Drug Use History: None Reported - Past Family History Father Family Medical History: Cancer Medications and Allergies Home Medications Medication Instructions Recorded Confirmed Type Atorvastatin [Lipitor] 20 mg PO HS 07/27/19 09/13/23 History Cyanocobalamin (Vitamin B-12) 5,000 mcg PO DAILY 07/27/19 09/13/23 History [Vitamin B-12] Furosemide [Lasix] 20 mg PO DAILY 07/27/19 09/13/23 History Mometasone/Formoterol [Dulera 200 2 puff INHALATION RT-BID 07/27/19 09/13/23 History Mcg/5 Mcg Inhaler] estradioL [Estradiol] 0.5 mg PO MOWEFR 07/27/19 09/13/23 History lisinopriL 20 mg PO DAILY 07/27/19 09/13/23 History metFORMIN HCL [Glucophage] 500 mg PO BID 07/27/19 09/13/23 History Albuterol Inhaler [Ventolin Hfa 1 - 2 puff INHALATION RT-Q6H PRN 09/13/23 09/13/23 History Inhaler] Aspirin EC [Ecotrin Low Dose] 81 mg PO DAILY 09/13/23 09/13/23 History Bimatoprost [Lumigan 0.01% Ophth 1 drop BOTH EYES HS 09/13/23 09/13/23 History Soln] Cholecalciferol (Vitamin D3) 50 mcg PO DAILY 09/13/23 09/13/23 History [Vitamin D3 (50 Mcg = 2000 Iu)] Tirzepatide [Mounjaro] 5 mg SQ DIRECTED 09/13/23 09/13/23 History guaiFENesin 400 mg PO DAILY 09/13/23 09/13/23 History Allergies Allergy/AdvReac Type Severity Reaction Status Date / Time clarithromycin [From Biaxin] Allergy Itching Verified 09/13/23 11:54 theophylline Allergy Itching Verified 09/13/23 11:54 Physical Exam Vitals: Vital Signs Temp Pulse Resp BP BP Pulse Ox 09/14/23 09:27 99 09/14/23 07:00 98.0 F 60 16 141/72 99 09/14/23 01:36 97.6 F 58 L 16 161/92 99 09/13/23 19:30 98.4 F 65 16 151/78 99 09/13/23 16:00 16 09/13/23 15:24 98.3 F 56 L 16 143/67 100 Intake and Output 09/13/23 09/14/23 09/14/23 22:59 06:59 14:59 Intake Total 357 Balance 357 Intake: Oral 357 Other: Voiding Method Toilet # Voids 2 1 Weight 97.522 kg Results 09/13/23 11:40 09/14/23 05:27 Cardiac Enzymes 09/13/23 09/13/23 09/14/23 Range/Units 14:37 17:57 05:27 AST 23 (13-35) U/L Troponin I <0.012 <0.012 (0.000-0.034) ng/mL Lipids 09/14/23 Range/Units 05:27 Triglycerides 139.00 (0.00-149.00) mg/dL Cholesterol 124.00 (0.00-200.00) mg/dL HDL Cholesterol 43.80 (40.00-60.00) mg/dL Cholesterol/HDL Ratio 2.83 Ratio Comprehensive Metabolic Panel 09/14/23 Range/Units 05:27 Sodium 143 (135-145) mmol/L Potassium 4.8 (3.5-5.5) mmol/L Chloride 106 (96-109) mmol/L Carbon Dioxide 24.3 (21.6-31.8) mmol/L BUN 19.1 (9.0-27.0) mg/dL Creatinine 0.8 (0.6-1.5) mg/dL Glucose 102 (70-110) mg/dL Calcium 9.9 (8.7-10.3) mg/dL AST 23 (13-35) U/L ALT 38 (8-44) U/L Alkaline Phosphatase 65 (41-126) U/L Total Protein 6.9 (6.2-8.2) g/dL Albumin 4.3 (3.8-4.9) g/dL Current Medications Generic Name Dose Route Start Last Admin Trade Name Freq PRN Reason Stop Dose Admin Acetaminophen 650 mg 09/13/23 12:38 Acetaminophen Tab 325 Mg Tab PO Q6HR PRN Mild Pain or Fever > 100.5 Albuterol/Ipratropium 3 ml 09/13/23 21:28 Ipratropium-Albuterol 3 Ml Neb INHALATION RT-QID PRN Shortness Of Breath Or Wheezing Aspirin 81 mg 09/14/23 09:00 09/14/23 08:48 Aspirin 81 Mg PO 81 mg DAILY BAMBI Administration Atorvastatin Calcium 20 mg 09/13/23 21:00 09/13/23 20:55 Atorvastatin 20 Mg Tab PO 20 mg HS BAMBI Administration Budesonide/Formoterol Fumarate 2 puff 09/13/23 20:00 09/14/23 09:28 Symbicort 160-4.5 Mcg Inhaler INHALATION Not Given RT-BID BAMBI Dextrose/Water 25 ml 09/13/23 14:09 Dextrose 50% Syringe 50 Ml IVP PER PROTOCOL PRN Hypoglycemia Protocol Dextrose/Water 50 ml 09/13/23 14:09 Dextrose 50% Syringe 50 Ml IVP PER PROTOCOL PRN Hypoglycemia Protocol Heparin Sodium (Porcine) 5,000 unit 09/13/23 16:00 09/14/23 08:48 Heparin Sodium,Porcine 5,000 Unit/Ml 1 Ml Vial SQ 5,000 unit Q8HR BAMBI Administration Insulin Aspart 0 unit 09/13/23 17:30 09/14/23 14:21 Insulin Aspart (Novolog) 100 Unit/Ml Vial SQ Not Given ACHS BAMBI Protocol Latanoprost 1 drops 09/13/23 21:00 09/13/23 21:26 Latanoprost 0.005% Ophth Drops 2.5 Ml Btl BOTH EYES 1 drops HS BAMBI Administration Lisinopril 20 mg 09/14/23 09:00 09/14/23 08:48 Lisinopril 20 Mg Tab PO 20 mg DAILY BAMBI Administration Lisinopril 10 mg 09/14/23 21:00 Lisinopril 10 Mg Tab PO HS BAMBI Naloxone HCl 0.2 mg 09/13/23 12:38 Naloxone 0.4 Mg/Ml 1 Ml Vial IV Q2M PRN Opioid Reversal Psyllium Hydrophilic Mucilloid 6 gm 09/14/23 14:45 Psyllium Husk 100% 6 Gm Packet PO DAILY BAMBI Intake and Output 09/13/23 09/14/23 09/14/23 22:59 06:59 14:59 Intake Total 357 Balance 357 Intake: Oral 357 Other: Voiding Method Toilet # Voids 2 1 Weight 97.522 kg 09/13/23 11:40 09/14/23 05:27
[2023-09-14] MEDS: PSYLLIUM HUSK 100% 6 GM PACKET PO SCH (15:05)
[2023-09-14 17:34] LABS: Glucose,Whole Blood 118 mg/dL (70-110)
[2023-09-14 20:15] LABS: Glucose,Whole Blood 127 mg/dL (70-110)
[2023-09-14] MEDS: lisinopriL 10 MG TAB PO SCH (20:27)
[2023-09-14] MEDS: SIMETHICONE 80 MG CHEWABLE PO PRN (21:30)
[2023-09-15 06:18] LABS: Glucose,Whole Blood 109 mg/dL (70-110)
[2023-09-15] MEDS: CHLORTHALIDONE 25 MG TAB PO SCH (09:08)
[2023-09-15] MEDS: lisinopriL 20 MG TAB PO SCH (09:09)
[2023-09-15 11:50] LABS: Glucose,Whole Blood 90 mg/dL (70-110)
--- NOTE | 2023-09-15 12:31 | P.PN ---
Subjective Progress Note Date: 09/15/23 zachary is a 72-year-old female with known history of hypertension, hyperlipidemia, diabetes type 2 [id number]-[id number], asthma and prior history of smoking presents to ER with complaints of chest pain on and off for the past 2 weeks. Patient started having chest pain this morning again. Pain is mainly left retrosternal, sharp in nature. No associated nausea or vomiting or diaphoresis. Patient states that she she felt left arm tingling sensation. Patient states that she has neuropathy and also complaining of left facial numbness like sensation as well. Denies any focal weakness. No headache or dizziness or lightheadedness. Denies any leg swelling. No cough or sputum production. Patient has upper respiratory symptoms about 2 months ago. Chest x-ray showed no acute process. EKG showed sinus rhythm with heart rate 70 and left axis deviation. Laboratory pressure WBC 7.0 hemoglobin 15.3 and platelets 339 Sodium 139 potassium 4.0 chloride 105 bicarb is 21 BUN 20 and creatinine 0.77 blood sugar 133 and calcium 10.3 total bili 1.4 AST 29 and ALT 41 alk phos 76. Troponin x 3 negative. 09/14. Patient seen and examined. No further episodes of chest pain. Cardiology eval the patient, recommended doing stress echo 09/15. Patient seen and examined. Denies any nausea or vomiting. Denies any shortness of breath. No further episodes of chest pain. Sitting upright in the chair REVIEW OF SYSTEMS: CONSTITUTIONAL: No fever, no malaise,. CARDIOVASCULAR: No chest pain, no palpitations, no syncope. PULMONARY: No shortness of breath, no cough, GASTROINTESTINAL: No diarrhea, no nausea, no vomiting, no abdominal pain. NEUROLOGICAL: No headaches, no weakness, PHYSICAL EXAMINATION: GENERAL: The patient is alert and oriented x3, not in any acute distress. Well developed, well nourished. HEENT: Pupils are round and equally reacting to light. EOMI. No scleral icterus. No conjunctival pallor. Normocephalic, atraumatic. No pharyngeal erythema. No thyromegaly. CARDIOVASCULAR: S1 and S2 present. No murmurs, rubs, or gallops. PULMONARY: Chest is clear to auscultation, no wheezing or crackles. ABDOMEN: Soft, nontender, nondistended, normoactive bowel sounds. No palpable organomegaly. MUSCULOSKELETAL: No joint swelling or deformity. EXTREMITIES: No cyanosis, clubbing, or pedal edema. NEUROLOGICAL: Gross neurological examination did not reveal any focal deficits. SKIN: No rashes. Assessment and plan Atypical chest pain. Rule out ACS. Hypercalcemia 10.3 likely from dehydration Mild transaminitis Hypertension Diabetes type 2 [id number]-nehkjhauf Diabetic peripheral neuropathy Asthma Hyperlipidemia Obesity with BMI 35.8 Prior history of smoking Plan: Monitor vital signs monitor CBC Monitor CMP Serial EKG and troponin x 3 negative. Continue with insulin sliding scale Continue DuoNebs and follow-up closely. Cardiology consulted, ordered stress test, scheduled for tomorrow morning Labs and medication were reviewed.. Continue same treatment. Continue with symptomatic treatment. Resume home medication. Monitor labs and vitals. DVT and GI prophylaxis. Further recommendations as per clinical course of the patient Dictation was produced using [employer] dictation software. please excuse any grammatical, word or spelling errors. Objective - Vital Signs Vital signs: Vital Signs Temp 97.6 F 09/15/23 07:00 Pulse 56 L 09/15/23 07:00 Resp 16 09/15/23 07:00 BP 139/62 09/15/23 07:00 Pulse Ox 99 09/15/23 07:00 FiO2 Intake & Output 09/14/23 09/15/23 09/15/23 18:59 06:59 18:59 Intake Total 357 Balance 357 Intake: Oral 357 Other: # Voids 5 1 # Bowel Movements 1 - Labs CBC & Chem 7: 09/13/23 11:40 09/14/23 05:27 Labs: Abnormal Lab Results - Last 24 Hours (Table) 09/14/23 09/14/23 09/14/23 Range/Units 05:27 05:27 17:33 Anion Gap 12.70 H (4.00-12.00) mmol/L BUN/Creatinine Ratio 23.88 H (12.00-20.00) Ratio POC Glucose (mg/dL) 118 H (70-110) mg/dL Hemoglobin A1c 6.4 H (<=6.0) % 09/14/23 Range/Units 20:14 Anion Gap (4.00-12.00) mmol/L BUN/Creatinine Ratio (12.00-20.00) Ratio POC Glucose (mg/dL) 127 H (70-110) mg/dL Hemoglobin A1c (<=6.0) %
--- NOTE | 2023-09-15 14:07 | P.PN ---
Subjective Progress Note Date: 09/15/23 The patient is a 72-year-old female who presented to the hospital with intermittent chest pains. She states these have been occurring over the course of several weeks and had an abnormal EKG in her primary care provider's office. She was in the process of being referred to our practice. Over the last 24 hours the patient has been notably hypertensive despite an increase in her SHAHEED inhibitor. No chest pain overnight. No difficulty breathing. GENERAL: Well-appearing, well-nourished and in no acute distress. NECK: Supple without JVD or thyromegaly. LUNGS: Breath sounds clear to auscultation bilaterally. Respiration equal and unlabored. No wheezes, rales or rhonchi. HEART: Regular rate and rhythm without murmurs, rubs or gallops. S1 and S2 heard. EXTREMITIES: Normal range of motion, no edema. No clubbing or cyanosis. Peripheral pulses intact and strong. TELEMETRY: Sinus rhythm overnight IMPRESSION: Chest discomfort Diabetes mellitus Hypertension, uncontrolled Dyslipidemia Prediabetes PLAN: Increase lisinopril to 20 mg twice daily Add chlorothiadone Exercise stress echocardiogram tomorrow I am dictating on behalf of Dr Harman Pisano's history/physical and assessment/plan. Objective - Vital Signs Vital signs: Vital Signs Temp 97.6 F 09/15/23 07:00 Pulse 56 L 09/15/23 07:00 Resp 16 09/15/23 07:00 BP 139/62 09/15/23 07:00 Pulse Ox 98 09/15/23 09:30 FiO2 Intake & Output 09/14/23 09/15/23 09/15/23 18:59 06:59 18:59 Intake Total 357 618 Balance 357 618 Intake: Oral 357 618 Other: # Voids 5 1 # Bowel Movements 1 - Labs CBC & Chem 7: 09/13/23 11:40 09/14/23 05:27 Labs: Abnormal Lab Results - Last 24 Hours (Table) 09/14/23 09/14/23 Range/Units 17:33 20:14 POC Glucose (mg/dL) 118 H 127 H (70-110) mg/dL
[2023-09-15 16:53] LABS: Glucose,Whole Blood 102 mg/dL (70-110)
[2023-09-15 20:15] LABS: Glucose,Whole Blood 132 mg/dL (70-110)
[2023-09-16 06:07] LABS: Glucose,Whole Blood 95 mg/dL (70-110)
[2023-09-16 08:59] VITALS: BP 118/80; PULSE 116; RESP 16; TEMP 97.9
--- NOTE | 2023-09-16 10:49 | P.PN ---
Subjective HISTORY OF PRESENT ILLNESS: This is a 72-year-old female who was admitted to the hospital secondary to chest pain. Patient examined this morning at the bedside. Patient denies any further episodes of chest pain or pressure. She denies shortness of breath. The patient did have an episode of sinus tachycardia this morning that resolved with rest. Vital signs are stable. PHYSICAL EXAM: VITAL SIGNS: Reviewed. GENERAL: Well-developed in no acute distress. NECK: Supple. No JVD or thyromegaly LUNGS: Respirations even and unlabored. Lungs essentially clear to auscultation bilaterally. HEART: Regular rate and rhythm. S1 and S2 heard. EXTREMITIES: Normal range of motion. No clubbing or cyanosis. Peripheral pulses intact. No lower extremity edema ASSESSMENT: Chest pain, troponin negative x 3 Hypertension, uncontrolled on admission Hyperlipidemia Diabetes Former nicotine dependence PLAN: Continue current cardiac medications Continue to monitor blood pressure Patient to undergo stress echocardiogram today If negative, patient may be discharged home from a cardiac standpoint Patient to follow-up in the office with Dr. Pisano Nurse practitioner note has been reviewed by physician. Signing provider agrees with the documented findings, assessment, and plan of care documented by DI[employer] TECH as a scribe. Objective - Vital Signs Vital signs: Vital Signs Temp 97.9 F 09/16/23 07:00 Pulse 116 H 09/16/23 07:00 Resp 16 09/16/23 07:00 BP 118/80 09/16/23 07:00 Pulse Ox 98 09/16/23 07:00 FiO2 Intake & Output 09/15/23 09/16/23 09/16/23 18:59 06:59 18:59 Intake Total 618 Balance 618 Intake: Oral 618 Other: # Voids 6 2 # Bowel Movements 1 - Labs CBC & Chem 7: 09/13/23 11:40 09/14/23 05:27 Labs: Abnormal Lab Results - Last 24 Hours (Table) 09/15/23 Range/Units 20:13 POC Glucose (mg/dL) 132 H (70-110) mg/dL
--- NOTE | 2023-09-16 11:54 | CA ---
Stress Echo Report Brandi Sal Age: 72 Gender: F : 1950 Exam Date: 09/16/2023 09:37 Exam Location: [facility] Ht (in): 65 Wt (lb): 215 Ordering Physician: Charity Lambert Referring Physician: [id number] Land Tool Setter: RITA, Technologist Procedure CPT: Indication: Chest Pain ICD-9 Codes: Rhythm: Patient History: Chest pain, shortness of breath and palpitations Cardiac Medications: Medications in past 24 hours: Contrast: Definity Stress Results Protocol: Sly Total dose(mL): 3 Exercise Duration (min:sec): 4:[address] Depression (mm): Angina Score: Powell Score: METS: 5.2 Resting HR: 88 Resting BP: 130 / 66 Peak HR: 153 Peak BP: 204 / 71 Max Predicted HR: 148 103 % Max Predicted HR Target HR: 126 Double Product: [id number] Stress Summary: BP Response: Reason for Termination: Reached target heart rate or work-load Cardiac Symptoms: No symptoms ECG Analysis Resting ECG: Normal sinus rhythm with poor R-wave progression Stress ECG: Patient exercised on Sly protocol for 4 minutes Achieving 5 Mets 85% of predicted maximal heart rate without chest pain There was right bundle branch block at peak exercise and frequent PVCs EKG changes are inconclusive Arrhythmia: Echo Analysis Resting Echo: Technically suboptimal secondary to poor echo windows endocardial visualization was enhanced with contrast agent No obvious wall motion abnormalities noted Peak Echo Analysis: No exercise induced wall motion abnormalities MEASUREMENTS (Male/Female) Normal Values CONCLUSIONS Poor exercise tolerance Inconclusive EKG part of the stress test due to baseline EKG abnormalities and conduction abnormalities during exercise Technically suboptimal stress echo no obvious exercise induced wall motion abnormalities If patient's symptoms persist consider doing a nuclear scan as outpatient Dr. Marcus Dillon MD (Electronically Signed) Final Date: 16 September 2023 11:53
[2023-09-16 12:30] LABS: Glucose,Whole Blood 163 mg/dL (70-110)
--- NOTE | 2023-09-16 13:05 | P.DS ---
Providers Date of admission: 09/13/23 12:39 Expected date of discharge: 09/16/23 Attending physician: Donna Ardon Consults: 09/13/23 12:38 Consult Physician Routine Consulting Provider: Milton Martinez Consult Reason/Comments: CP Do you want consulting provider notified?: Yes Primary care physician: [facility] Hospital Course: Discharge diagnoses; Atypical chest pain. Ruled out ACS. Hypercalcemia 10.3 likely from dehydration Mild transaminitis Hypertension Diabetes type 2 [id number] Diabetic peripheral neuropathy Asthma Hyperlipidemia Obesity with BMI 35.8 Prior history of smoking Hospital course; patient is a 72-year-old female with known history of hypertension, hyperlipidemia, diabetes type 2 [id number], asthma and prior history of smoking presents to ER with complaints of chest pain on and off for the past 2 weeks. Patient started having chest pain this morning again. Pain is mainly left retrosternal, sharp in nature. No associated nausea or vomiting or diaphoresis. Patient states that she she felt left arm tingling sensation. Patient states that she has neuropathy and also complaining of left facial numbness like sensation as well. Denies any focal weakness. No headache or dizziness or lightheadedness. Denies any leg swelling. No cough or sputum production. Patient has upper respiratory symptoms about 2 months ago. Chest x-ray showed no acute process. EKG showed sinus rhythm with heart rate 70 and left axis deviation. Laboratory pressure WBC 7.0 hemoglobin 15.3 and platelets 339 Sodium 139 potassium 4.0 chloride 105 bicarb is 21 BUN 20 and creatinine 0.77 blood sugar 133 and calcium 10.3 total bili 1.4 AST 29 and ALT 41 alk phos 76. Troponin x 3 negative. 09/14. Patient seen and examined. No further episodes of chest pain. Cardiology eval the patient, recommended doing stress echo 09/15. Patient seen and examined. Denies any nausea or vomiting. Denies any shortness of breath. No further episodes of chest pain. Sitting upright in the chair 09/16. Patient seen and examined. Stress test negative for any ischemia. Cardiology adjusted medications, started chlorthalidone and increase lisinopril to 20 mg twice daily PHYSICAL EXAMINATION: GENERAL: The patient is alert and oriented x3, not in any acute distress. Well developed, well nourished. HEENT: Pupils are round and equally reacting to light. EOMI. No scleral icterus. No conjunctival pallor. Normocephalic, atraumatic. No pharyngeal erythema. No thyromegaly. CARDIOVASCULAR: S1 and S2 present. No murmurs, rubs, or gallops. PULMONARY: Chest is clear to auscultation, no wheezing or crackles. ABDOMEN: Soft, nontender, nondistended, normoactive bowel sounds. No palpable organomegaly. MUSCULOSKELETAL: No joint swelling or deformity. EXTREMITIES: No cyanosis, clubbing, or pedal edema. NEUROLOGICAL: Gross neurological examination did not reveal any focal deficits. SKIN: No rashes. Dictation was produced using [employer] dictation software. please excuse any grammatical, word or spelling errors. Patient Condition at Discharge: Stable Plan - Discharge Summary New Discharge Prescriptions: New Chlorthalidone [Hygroton] 25 mg PO DAILY #30 tab lisinopriL [Zestril] 20 mg PO BID #60 tab Continue metFORMIN HCL [Glucophage] 500 mg PO BID Mometasone/Formoterol [Dulera 200 Mcg-5 Mcg Inhaler] 2 puff INHALATION RT-BID estradioL [Estradiol] 0.5 mg PO MOWEFR Cyanocobalamin (Vitamin B-12) [Vitamin B-12] 5,000 mcg PO DAILY Atorvastatin [Lipitor] 20 mg PO HS Cholecalciferol (Vitamin D3) [Vitamin D3 (50 Mcg = 2000 Iu)] 50 mcg PO DAILY Aspirin EC [Ecotrin Low Dose] 81 mg PO DAILY guaiFENesin 400 mg PO DAILY Albuterol Inhaler [Ventolin Hfa Inhaler] 1 - 2 puff INHALATION RT-Q6H PRN PRN Reason: Shortness Of Breath Bimatoprost [Lumigan 0.01% Ophth Soln] 1 drop BOTH EYES HS Tirzepatide [Mounjaro] 5 mg SQ DIRECTED Discontinued lisinopriL 20 mg PO DAILY Furosemide [Lasix] 20 mg PO DAILY guaiFENesin [Mucinex] 600 mg PO DAILY Discharge Medication List Atorvastatin [Lipitor] 20 mg PO HS 07/27/19 [History] Cyanocobalamin (Vitamin B-12) [Vitamin B-12] 5,000 mcg PO DAILY 07/27/19 [History] Mometasone/Formoterol [Dulera 200 Mcg-5 Mcg Inhaler] 2 puff INHALATION RT-BID 07/27/19 [History] estradioL [Estradiol] 0.5 mg PO MOWEFR 07/27/19 [History] metFORMIN HCL [Glucophage] 500 mg PO BID 07/27/19 [History] Albuterol Inhaler [Ventolin Hfa Inhaler] 1 - 2 puff INHALATION RT-Q6H PRN 09/13/23 [History] Aspirin EC [Ecotrin Low Dose] 81 mg PO DAILY 09/13/23 [History] Bimatoprost [Lumigan 0.01% Oph Soln] 1 drop BOTH EYES HS 09/13/23 [History] Cholecalciferol (Vitamin D3) [Vitamin D3 (50 Mcg = 2000 Iu)] 50 mcg PO DAILY 09/13/23 [History] Tirzepatide [Mounjaro] 5 mg SQ DIRECTED 09/13/23 [History] guaiFENesin 400 mg PO DAILY 09/13/23 [History] Chlorthalidone [Hygroton] 25 mg PO DAILY #30 tab 09/16/23 [Rx] lisinopriL [Zestril] 20 mg PO BID #60 tab 09/16/23 [Rx] Follow up Appointment(s)/Referral(s): Harman Pisano MD [STAFF PHYSICIAN] - 1 Week Mirlande Eduardo [Primary Care Provider] - 1-2 days Activity/Diet/Wound Care/Special Instructions: bring own blood pressure cuff to dr alamo follow up appointment Discharge Disposition: HOME SELF-CARE
== END 2023-09-16 14:49 | disposition home or self-care (01) ==
LOC: EC 10:55 → 6NMEDSUR 12:39
PROVIDERS: ADMIT Internal Medicine; ATTEND Internal Medicine
DX: R07.89 Other chest pain (principal); E83.52 Hypercalcemia; E86.0 Dehydration; R74.01 Elevation of levels of liver transaminase levels; J45.909 Unspecified asthma, uncomplicated; E11.42 Type 2 diabetes mellitus with diabetic polyneuropathy; E78.5 Hyperlipidemia, unspecified; I10 Essential (primary) hypertension; E66.9 Obesity, unspecified; Z68.35 Body mass index [BMI] 35.0-35.9, adult; Z87.891 Personal history of nicotine dependence; Z79.4 Long term (current) use of insulin; Z79.51 Long term (current) use of inhaled steroids; Z79.82 Long term (current) use of aspirin; Z79.84 Long term (current) use of oral hypoglycemic drugs; Z79.899 Other long term (current) drug therapy; Z88.1 Allergy status to other antibiotic agents
CPT/HCPCS: 96360; 96361; 96372 ×4; 99285; 36415; 94760 ×2; 93005; 80061; 80053 ×2; 83735; 84443; 84484; 85025; 85610; 85730; 83036; 72050; 71046; G0378 ×4; C8930; J1644 ×3; Q9957; 93351

== ENCOUNTER → 2023-10-21 | Outpatient (CLI) | payer MEDICARE ==
--- NOTE | 2023-10-22 09:01 | MM ---
Reason for Exam: Screening (asymptomatic). Last mammogram was performed 1 year(s) and 1 month(s) ago. Patient History: Menarche at age 13. First Full-Term at age 26. Left ovary removed at age 48. Hysterectomy at age 48. Postmenopausal. Currently using Estrogen, for 20 years. Patient used Hormonal Contraceptives for 3 years. 2001, Excisional Biopsy on the Left side. Risk Values: Latricia 5 year model risk: 2.3%. NCI Lifetime model risk: 6.0%. Prior Study Comparison: 07/27/2019 Bilateral Screening Mammogram, [facility]. 08/15/2021 Bilateral Screening Mammogram, [facility]. 10/17/2022 Bilateral MG 3D screening mammo w/cad, [facility]. Tissue Density: The breasts are heterogeneously dense, which may obscure small masses. Findings: Analyzed By CAD. There is no suspicious group of microcalcifications or new suspicious mass in either breast. Overall Assessment: Benign, BI-RAD 2 Management: Screening Mammogram of both breasts in 1 year. . Patient should continue monthly self-breast exams. A clinical breast exam by your physician is recommended on an annual basis. This exam should not preclude additional follow-up of suspicious palpable abnormalities. Note on Latricia scores and lifetime risk: 1. A Latricia score greater than 3% is considered moderate risk. If this is the case, consider specialist referral to assess eligibility for a risk reducing agent. 2. If overall lifetime risk for the development of breast cancer is 20% or higher, the patient may qualify for future screening with alternating mammogram and breast MRI. Electronically signed and approved by: Feliz Gray M.D. Radiologis
== END | disposition home or self-care (01) ==
LOC: RADMAMWWP 10:37
PROVIDERS: ATTEND Family Medicine
DX: Z12.31 Encounter for screening mammogram for malignant neoplasm of breast (principal); Z78.0 Asymptomatic menopausal state
CPT/HCPCS: 77063; 77067

== ENCOUNTER → 2024-01-10 | Outpatient (CLI) | payer MEDICARE ==
--- NOTE | 2024-01-15 10:04 | MR ---
EXAMINATION TYPE: MR foot RT wo con DATE OF EXAM: 01/10/2024 COMPARISON: No radiographic correlation available HISTORY: 73-year-old female L98.494 Ulcer right second digit, marker placed, Hx of diabetic neuropath y TECHNIQUE: Multiplanar, multisequence images of the right foot were obtained without IV contrast. FINDINGS: Scattered generalized soft tissue swelling. Scattered mild muscular edema may relate to some neuropat hic changes. Bunion formation with at least mild to moderate degenerative change first MTP joint. Additional scattered mild degenerative change throughout the mid foot. The tibiotalar joint and subtalar joints appear intact. Achilles tendon and origin of the plantar fascia are intact. Moderate sized plantar heel spur. There is a focal soft tissue ulcer at the tip of the second toe. Underlying osseous edema involving t he second distal phalanx with corresponding bone marrow placement and cortical loss. No additional suspicious areas of marrow replacement are seen. IMPRESSION: Soft tissue ulcer involving the tip of the second toe. Findings compatible with underlying contiguous osteomyelitis of the second distal phalanx. Consider radiographic assessment to more accurately dete rmine the degree of bone loss. Scattered degenerative changes within the midfoot, and first MTP joint. Additional bunion as well as some scattered neuropathic changes relating to the patient's diabetes.
== END | disposition home or self-care (01) ==
LOC: RADMRIMAIN 15:18
PROVIDERS: ATTEND Podiatrist Foot & Ankle Surgery
DX: L98.494 Non-pressure chronic ulcer of skin of other sites with necrosis of bone (principal); M19.071 Primary osteoarthritis, right ankle and foot

== ENCOUNTER 2024-09-30 10:38 | Emergency (ER) | payer MEDICARE ==
[2024-09-30] MEDS: methylPREDNISolone SOD SUCCI 125 MG/2 ML VIAL IV STA (11:07)
[2024-09-30 11:18] LABS: Basophils % (A) 0 %; Eosinophils % (A) 0 %; HCT 36.6 % (34.0-46.0); HGB 12.6 gm/dL (11.4-16.0); Lymphocytes # (A) 0.4 k/uL (1.0-4.8); Lymphocytes % (A) 3 %; MCH 32.8 pg (25.0-35.0); MCHC 34.5 g/dL (31.0-37.0); MCV 95.3 fL (80.0-100.0); Mean Platelet Volume 8.1; Monocytes # (A) 0.2 k/uL (0-1.0); Monocytes % (A) 2 %; Neutrophils # (A) 11.2 k/uL (1.3-7.7); Neutrophils % (A) 95 %; Platelet Count 237 k/uL (150-450); RBC 3.85 m/uL (3.80-5.40); RDW 12.4 % (11.5-15.5); WBC 11.8 k/uL (3.8-10.6)
[2024-09-30 11:25] LABS: AST 22 U/L (14-36); African American GFR (CKD) >90 (>60 ml/min/1.73 sqM); Albumin 4.1 g/dL (3.5-5.0); Alkaline Phosphatase 55 U/L (38-126); Anion Gap 13 mmol/L; Blood Urea Nitrogen 24 mg/dL (7-17); Calcium 9.8 mg/dL (8.4-10.2); Carbon Dioxide 21 mmol/L (22-30); Chloride 94 mmol/L (98-107); Glucose 216 mg/dL (74-99); Magnesium 1.6 mg/dL (1.6-2.3); Non-African American GFR(CKD) 84 (>60 ml/min/1.73 sqM); Potassium 3.7 mmol/L (3.5-5.1); Sodium 128 mmol/L (137-145); Total Bilirubin 0.9 mg/dL (0.2-1.3); Total Protein 6.7 g/dL (6.3-8.2)
[2024-09-30 11:32] LABS: INR 0.9 (<1.2); Partial Thromboplastin Time 22.4 sec (22.0-30.0); Prothrombin Time 9.8 sec (10.0-12.5)
[2024-09-30 11:34] LABS: ALT 32 U/L (4-34); NT-Pro-B-Type Natriuretic Pept 177 pg/mL
[2024-09-30 11:49] LABS: Influenza A Detected (Not Detectd); Influenza B Not Detected (Not Detectd); RSV Not Detected (Not Detectd)
--- NOTE | 2024-09-30 12:00 | XR ---
EXAMINATION TYPE: XR chest 2V DATE OF EXAM: 09/30/2024 CLINICAL INDICATION: Female, 73 years old with history of difficulty breathing, TECHNIQUE: Frontal and lateral views of the chest are obtained. COMPARISON: Chest x-ray September 13, 2023 FINDINGS: There is no focal air space opacity, pleural effusion, or pneumothorax seen. Cardiomegaly is redemonstrated. Cholecystectomy clips again seen. The osseous structures are intact. IMPRESSION: Cardiomegaly without acute pulmonary process. [facility], , 09/30/2024 11:58 AM
[2024-09-30] MEDS: IPRATROPIUM-ALBUTEROL 3 ML NEB INHALATION STA (12:09)
--- NOTE | 2024-09-30 12:38 | ED ---
SOB HPI - General Chief Complaint: Shortness of Breath Stated Complaint: SOB Time Seen by Provider: 09/30/24 10:51 Source: patient, RN notes reviewed Mode of arrival: ambulatory Limitations: no limitations - History of Present Illness Initial Comments: 73-year-old female presents emergency department chief complaint of cough and cold-like symptoms. Patient states she has had intermittent shortness of breath since July she does have a history of asthma of the last few days she has had increasing symptoms productive cough, possible fever she was seen in urgent care and was given steroids. Patient states that she continues to have a cough with no sick improvement she is scheduled follow-up with pulmonology within the week. Patient denies chest pain no headache currently she has complaints of bodyaches. - Related Data Home Medications Medication Instructions Recorded Confirmed Atorvastatin [Lipitor] 20 mg PO HS 07/27/19 09/30/24 Cyanocobalamin (Vitamin B-12) 5,000 mcg PO DAILY 07/27/19 09/30/24 [Vitamin B-12] Mometasone/Formoterol [Dulera 200 2 puff INHALATION RT-BID 07/27/19 09/30/24 Mcg-5 Mcg Inhaler] Albuterol Inhaler [Ventolin Hfa 2 puff INHALATION RT-QID PRN 09/13/23 09/30/24 Inhaler] Aspirin EC [Ecotrin Low Dose] 81 mg PO DAILY 09/13/23 09/30/24 Bimatoprost [Lumigan 0.01% Ophth 1 drop BOTH EYES HS 09/13/23 09/30/24 Soln] Cholecalciferol (Vitamin D3) 50 mcg PO DAILY 09/13/23 09/30/24 [Vitamin D3 (50 Mcg = 2000 Iu)] guaiFENesin 400 mg PO DAILY 09/13/23 09/30/24 Fluticasone Nasal [place] [Flonase 1 spr EA NOSTRIL BID 09/30/24 09/30/24 Nasal [place]] Ipratropium-Albuterol Nebulize 3 ml INHALATION RT-QID PRN 09/30/24 09/30/24 [Duoneb 0.5 mg-3 mg/3 ml Soln] Montelukast [Singulair] 10 mg PO HS 09/30/24 09/30/24 Thiamine HCl [Vitamin B-1] 500 mg PO DAILY 09/30/24 09/30/24 Previous Rx's Medication Instructions Recorded Chlorthalidone [Hygroton] 25 mg PO DAILY #30 tab 09/16/23 lisinopriL [Zestril] 20 mg PO BID #60 tab 09/16/23 Ipratropium-Albuterol Nebulize 3 ml INHALATION QID #50 each 09/30/24 [Duoneb 0.5 mg-3 mg/3 ml Soln] Oseltamivir [Tamiflu] 75 mg PO Q12HR #10 cap 09/30/24 predniSONE 10 mg PO DIRECTED #20 tab 09/30/24 Allergies Allergy/AdvReac Type Severity Reaction Status Date / Time clarithromycin [From Biaxin] Allergy Itching Verified 09/30/24 11:30 theophylline Allergy Itching Verified 09/30/24 11:30 feet Review of Systems ROS Statement: Those systems with pertinent positive or pertinent negative responses have been documented in the HPI. ROS Other: All systems not noted in ROS Statement are negative. Past Medical History Past Medical History: Asthma, Diabetes Mellitus, Hyperlipidemia, Hypertension, Osteoarthritis (OA), Pneumonia Additional Past Medical History / Comment(s): HX COLON POLYPS, HERNIA. History of Any Multi-Drug Resistant Organisms: None Reported Past Surgical History: Breast Surgery, Cholecystectomy, Hysterectomy Additional Past Surgical History / Comment(s): COLONOSCOPIES X 2 POLYPS. , CATARACTS WITH LENS IMPLANTS. LEFT BREAST BX Past Anesthesia/Blood Transfusion Reactions: No Reported Reaction Past Psychological History: No Psychological Hx Reported Smoking Status: Former smoker Past Alcohol Use History: None Reported Past Drug Use History: None Reported - Past Family History Father Family Medical History: Cancer General Exam Limitations: no limitations General appearance: alert, in no apparent distress Head exam: Present: atraumatic, normocephalic, normal inspection Eye exam: Present: normal appearance, PERRL, EOMI. Absent: scleral icterus, conjunctival injection, periorbital swelling ENT exam: Present: normal exam, mucous membranes moist Neck exam: Present: normal inspection, full ROM. Absent: tenderness, meningismus, lymphadenopathy Respiratory exam: Present: wheezes. Absent: normal lung sounds bilaterally, respiratory distress, rales, rhonchi, stridor Cardiovascular Exam: Present: normal rhythm, tachycardia, normal heart sounds. Absent: systolic murmur, diastolic murmur, rubs, gallop, clicks GI/Abdominal exam: Present: soft, normal bowel sounds. Absent: distended, tenderness, guarding, rebound, rigid Course Vital Signs 09/30/24 09/30/24 09/30/24 10:46 12:10 12:22 Temperature 97 F L Pulse Rate 104 H 78 81 Respiratory 18 Rate Blood Pressure 133/76 O2 Sat by Pulse 97 Oximetry 09/30/24 12:45 Temperature 97.9 F Pulse Rate 66 Respiratory 20 Rate Blood Pressure 124/61 O2 Sat by Pulse 96 Oximetry Medical Decision Making - Medical Decision Making Was pt. sent in by a medical professional or institution (, PA, [employer], urgent care, hospital, or prison...) When possible be specific @ -No Did you speak to anyone other than the patient for history (EMS, parent, family, police, friend...)? What history was obtained from this source @ -No Did you review nursing and triage notes (agree or disagree)? Why? @ -I reviewed and agree with nursing and triage notes Were old charts reviewed (outside hosp., previous admission, EMS record, old EKG, old radiological studies, urgent care reports/EKG's, prison records)? Report findings @ -No old charts were reviewed Differential Diagnosis (chest pain, altered mental status, abdominal pain women, abdominal pain men, vaginal bleeding, weakness, fever, dyspnea, syncope, headache, dizziness, GI bleed, back pain, seizure, CVA, palpatations, mental health, musculoskeletal)? @Differential Dyspnea: Coronary syndrome, arrhythmia, tamponade, asthma, COPD, pulmonary embolism, pneumonia, pneumothorax, pulmonary effusion, anaphylaxis, diabetic ketoacidosis, flailed chest, pulmonary contusion, diaphragmatic rupture, anemia, neuromuscula r, this is not meant to be an all-inclusive list. COVID 19, RSV, influenza, pneumonia, acute bronchitis, URI, this list is not all inclusive EKG interpreted by me (3pts min.). @ -As above X-rays interpreted by me (1pt min.). @ -[Chest x-ray shows no acute cardiopulmonary process. CT interpreted by me (1pt min.). @ -None done U/S interpreted by me (1pt. min.). @ -None done What testing was considered but not performed or refused? (CT, X-rays, U/S, labs)? Why? @ -None What meds were considered but not given or refused? Why? @ -None Did you discuss the management of the patient with other professionals (professionals i.e. , PA, [employer], lab, RT, psych nurse, psychiatric social worker, finisher merchant products, teacher, postal delivery officer, catalytic case operator)? Give summary @ -No Was smoking cessation discussed for >3mins.? @ -No Was critical care preformed (if so, how long)? @ -No Were there social determinants of health that impacted care today? How? (Homelessness, low income, unemployed, alcoholism, drug addiction, transportati on, low edu. Level, literacy, decrease access to med. care, fdc, rehab)? @ -No Was there de-escalation of care discussed even if they declined (Discuss DNR or withdrawal of care, Hospice)? DNR status @ -No What co-morbidities impacted this encounter? (DM, HTN, Smoking, COPD, CAD, Cancer, CVA, ARF, Chemo, Hep., AIDS, mental health diagnosis, sleep apnea, morbid obesity)? @ -Asthma Was patient admitted / discharged? Hospital course, mention meds given and route, prescriptions, significant lab abnormalities, going to OR and other pertinent info. @ -[Discharge patient is influenza A positive. Patient started on Tamiflu. Patient discharged steroids, DuoNeb treatments she does feel improved after DuoNeb treatment here she was given Solu-Medrol. Patient follow-up with pulmonology and return parameters jagruti. Undiagnosed new problem with uncertain prognosis? @ -No Drug Therapy requiring intensive monitoring for toxicity (Heparin, Nitro, Insulin, Cardizem)? @ -No Were any procedures done? @ -No Diagnosis/symptom? @ -Influenza A, asthma Acute, or Chronic, or Acute on Chronic? @ -Acute Uncomplicated (without systemic symptoms) or Complicated (systemic symptoms)? @ -Uncomplicated Side effects of treatment? @ -No Exacerbation, Progression, or Severe Exacerbation? @ -No Poses a threat to life or bodily function? How? (Chest pain, USA, IA, pneumonia, PE, COPD, DKA, ARF, appy, cholecystitis, CVA, Diverticulitis, Homicidal, Suicidal, threat to staff... and all critical care pts) @ -No - Lab Data Result diagrams: 09/30/24 11:04 09/30/24 11:04 Lab Results 09/30/24 09/30/24 09/30/24 Range/Units 11:04 11:04 11:04 WBC 11.8 H (3.8-10.6) k/uL RBC 3.85 (3.80-5.40) m/uL Hgb 12.6 (11.4-16.0) gm/dL Hct 36.6 (34.0-46.0) % MCV 95.3 (80.0-100.0) fL MCH 32.8 (25.0-35.0) pg MCHC 34.5 (31.0-37.0) g/dL RDW 12.4 (11.5-15.5) % Plt Count 237 (150-450) k/uL MPV 8.1 Neutrophils % 95 % Lymphocytes % 3 % Monocytes % 2 % Eosinophils % 0 % Basophils % 0 % Neutrophils # 11.2 H (1.3-7.7) k/uL Lymphocytes # 0.4 L (1.0-4.8) k/uL Monocytes # 0.2 (0-1.0) k/uL Eosinophils # 0.0 (0-0.7) k/uL Basophils # 0.0 (0-0.2) k/uL PT 9.8 L (10.0-12.5) sec INR 0.9 (<1.2) APTT 22.4 (22.0-30.0) sec D-Dimer 0.33 (<0.60) mg/L FEU Sodium 128 L (137-145) mmol/L Potassium 3.7 (3.5-5.1) mmol/L Chloride 94 L (98-107) mmol/L Carbon Dioxide 21 L (22-30) mmol/L Anion Gap 13 mmol/L BUN 24 H (7-17) mg/dL Creatinine 0.72 (0.52-1.04) mg/dL Est GFR (CKD-EPI)AfAm >90 (>60 ml/min/1.73 sqM) Est GFR (CKD-EPI)NonAf 84 (>60 ml/min/1.73 sqM) Glucose 216 H (74-99) mg/dL Calcium 9.8 (8.4-10.2) mg/dL Magnesium 1.6 (1.6-2.3) mg/dL Total Bilirubin 0.9 (0.2-1.3) mg/dL AST 22 (14-36) U/L ALT 32 (4-34) U/L Alkaline Phosphatase 55 (38-126) U/L Troponin I (0.000-0.034) ng/mL NT-Pro-B Natriuret Pep 177 pg/mL Total Protein 6.7 (6.3-8.2) g/dL Albumin 4.1 (3.5-5.0) g/dL Influenza Type A (PCR) (Not Detectd) Influenza Type B (PCR) (Not Detectd) RSV (PCR) (Not Detectd) SARS-CoV-2 (PCR) (Not Detectd) 09/30/24 09/30/24 Range/Units 11:04 11:04 WBC (3.8-10.6) k/uL RBC (3.80-5.40) m/uL Hgb (11.4-16.0) gm/dL Hct (34.0-46.0) % MCV (80.0-100.0) fL MCH (25.0-35.0) pg MCHC (31.0-37.0) g/dL RDW (11.5-15.5) % Plt Count (150-450) k/uL MPV Neutrophils % % Lymphocytes % % Monocytes % % Eosinophils % % Basophils % % Neutrophils # (1.3-7.7) k/uL Lymphocytes # (1.0-4.8) k/uL Monocytes # (0-1.0) k/uL Eosinophils # (0-0.7) k/uL Basophils # (0-0.2) k/uL PT (10.0-12.5) sec INR (<1.2) APTT (22.0-30.0) sec D-Dimer (<0.60) mg/L FEU Sodium (137-145) mmol/L Potassium (3.5-5.1) mmol/L Chloride (98-107) mmol/L Carbon Dioxide (22-30) mmol/L Anion Gap mmol/L BUN (7-17) mg/dL Creatinine (0.52-1.04) mg/dL Est GFR (CKD-EPI)AfAm (>60 ml/min/1.73 sqM) Est GFR (CKD-EPI)NonAf (>60 ml/min/1.73 sqM) Glucose (74-99) mg/dL Calcium (8.4-10.2) mg/dL Magnesium (1.6-2.3) mg/dL Total Bilirubin (0.2-1.3) mg/dL AST (14-36) U/L ALT (4-34) U/L Alkaline Phosphatase (38-126) U/L Troponin I <0.012 (0.000-0.034) ng/mL NT-Pro-B Natriuret Pep pg/mL Total Protein (6.3-8.2) g/dL Albumin (3.5-5.0) g/dL Influenza Type A (PCR) Detected A (Not Detectd) Influenza Type B (PCR) Not Detected (Not Detectd) RSV (PCR) Not Detected (Not Detectd) SARS-CoV-2 (PCR) Not Detected (Not Detectd) - EKG Data -: EKG Interpreted by Me EKG Comments: EKG performed at 10: 56 sinus rhythm rate of 96 HI 183 QRS 102 QT/QTc 338/391 Disposition Clinical Impression: Influenza A, Asthma Disposition: HOME SELF-CARE Condition: Stable Instructions (If sedation given, give patient instructions): Influenza (ED) Additional Instructions: Please return to the Emergency Department if symptoms worsen or any other concerns. Prescriptions: Ipratropium-Albuterol Nebulize [Duoneb 0.5 mg-3 mg/3 ml Soln] 3 ml INHALATION QID #50 each predniSONE 10 mg PO DIRECTED #20 tab Oseltamivir [Tamiflu] 75 mg PO Q12HR #10 cap Is patient prescribed a controlled substance at d/c from ED?: No Referrals: Dawson King [Primary Care Provider] - 1-2 days Time of Disposition: 12:38
[2024-09-30 12:51] VITALS: BP 124/61; PULSE 66; RESP 20; TEMP 97.9
== END 2024-09-30 12:56 | disposition home or self-care (01) ==
LOC: EC 10:38
DX: J10.1 Influenza due to other identified influenza virus with other respiratory manifestations (principal); J45.909 Unspecified asthma, uncomplicated; Z11.52 Encounter for screening for COVID-19; Z87.891 Personal history of nicotine dependence
CPT/HCPCS: 36415; 94640; 93005; 85379; 83880; 80053; 83735; 84484; 85025; 85610; 85730; 87636; 71046; 99285; 96374; J2919

== ENCOUNTER → 2024-12-01 | Day surgery (SDC) | payer MEDICARE | LOC: CATHCVL 10:46 | PROVIDERS: ATTEND Internal Medicine | DX: J32.9 Chronic sinusitis, unspecified (principal) | CPT/HCPCS: 36573; C1751 ==